=== PATIENT | female | born 1950 | race Caucasian/White ===

== ENCOUNTER 2019-07-12 09:40 | Outpatient (CLI) | payer MEDICARE, OTHER ==
[2019-07-12 09:54] LABS: BASOPHILS # (AUTO) 0.1 10^3/uL (0.0-0.1); BASOPHILS % (AUTO) 0.8 %; EOSINOPHILS # (AUTO) 0.1 10^3/uL (0.0-0.7); HGB - HEMOGLOBIN 13.6 g/dL (14.0-18.0); LYMPHOCYTES # (AUTO) 1.3 10^3/uL (1.5-3.5); LYMPHOCYTES % (AUTO) 20.4 %; MEAN CORPUSCULAR HEMOGLOBIN 31.3 pg (27.0-31.0); MEAN CORPUSCULAR HGB CONC 33.5 g/dL (32.0-36.0); MEAN CORPUSCULAR VOLUME 93.5 fL (80.0-94.0); MEAN PLATELET VOLUME 9.9 fL (7.4-11.4); MONOCYTES # (AUTO) 0.7 10^3/uL (0.0-1.0); MONOCYTES % (AUTO) 10.1 %; NEUTROPHILS # (AUTO) 4.2 10^3/uL (1.5-6.6); NEUTROPHILS % (AUTO) 66.2 %; PLT - PLATELET COUNT 288 10^3/uL (130-450); RED BLOOD COUNT 4.34 10^6/uL (4.70-6.10); RED CELL DISTRIBUTION WIDTH 12.3 % (12.0-15.0); WHITE BLOOD COUNT 6.4 x10^3/uL (4.8-10.8)
[2019-07-12 10:14] LABS: ALBUMIN 4.3 g/dL (3.2-5.5); ALBUMIN/GLOBULIN RATIO 1.2 (1.0-2.2); BILIRUBIN,TOTAL 0.7 mg/dL (0.2-1.0); CALCIUM 10.1 mg/dL (8.5-10.3); CREATININE 0.8 mg/dL (0.6-1.2); TOTAL PROTEIN 7.8 g/dL (6.7-8.2)
== END 2019-07-12 09:41 | disposition home or self-care (01) ==
LOC: EDSEX → LAB 09:40
PROVIDERS: ATTEND Physician Assistant
DX: R10.9 Unspecified abdominal pain (principal)
CPT/HCPCS: 36415; 80053; 85025

== ENCOUNTER 2019-07-12 09:55 | Outpatient (CLI) | payer MEDICARE, OTHER | END 2019-07-12 09:56 | disposition home or self-care (01) | LOC: DI 09:55 → EDSEX 09:55 → DI 09:56 | PROVIDERS: ATTEND Physician Assistant | DX: Z53.9 Procedure and treatment not carried out, unspecified reason (principal) ==

== ENCOUNTER 2019-07-13 08:30 | Outpatient (CLI) | payer MEDICARE, OTHER ==
[2019-07-13] MEDS ORDERED: IOVERSOL 320 100 ML VIAL IVP ONE (11:38)
[2019-07-13] MEDS ORDERED: IOVERSOL 320 50 ML VIAL PO ONE (11:38)
--- NOTE | 2019-07-15 06:20 | CT Report ---
Reason: ABD PAIN, CRAMPING, BOWEL CHANGES Procedure Date: 07/13/2019 Accession Number: [id number] / [id number] Procedure: CT - Abdomen/Pelvis W CPT Code: FULL RESULT: EXAM: CT ABDOMEN AND PELVIS EXAM DATE: 07/13/2019 10:55 AM. CLINICAL HISTORY: ABD PAIN, CRAMPING, BOWEL CHANGES. COMPARISONS: None. TECHNIQUE: Routine helical CT imaging was performed through the abdomen and pelvis. IV contrast: OPTI 320 90ML. Enteric contrast: Yes. Reconstructions: Coronal and sagittal. In accordance with CT protocol optimization, one or more of the following dose reduction techniques were utilized for this exam: automated exposure control, adjustment of mA and/or KV based on patient size, or use of iterative reconstructive technique. FINDINGS: Lung Bases: Mild scarring and/or atelectasis at lung bases. Small granuloma in the lingula. Liver: Mild fatty infiltration of the liver. Liver otherwise unremarkable. Gallbladder/Bile Ducts: Unremarkable. Spleen: Normal. Pancreas: Fatty replacement/atrophy of the pancreas. No peripancreatic fluid or stranding. No evidence of mass. Adrenal Glands: Normal. Kidneys: Normal for age. No masses, calculi or hydronephrosis. Peritoneal Cavity/Bowel: No evidence of bowel obstruction. No significant bowel wall thickening. Colonic diverticula without evidence of acute diverticulitis. Normal appendix. Pelvic Organs: Bladder is underdistended which limits evaluation. Uterus and adnexa appear grossly unremarkable. Vasculature: Atherosclerotic vascular disease. No abdominal aortic aneurysm. Bones: Osseous degenerative changes and mild scoliosis of lumbar spine. No acute osseous abnormality. Other: Tiny fat-containing umbilical hernia. IMPRESSION: 1. No acute inflammatory or obstructive process in the abdomen or pelvis. Specifically, no CT evidence of bowel process to account for symptoms. 2. Colonic diverticula without evidence of acute diverticulitis. 3. Mild fatty infiltration of the liver. RADIA
== END 2019-07-13 08:31 | disposition home or self-care (01) ==
LOC: DI 08:30
PROVIDERS: ATTEND Physician Assistant
DX: K57.30 Diverticulosis of large intestine without perforation or abscess without bleeding (principal); K76.0 Fatty (change of) liver, not elsewhere classified; R10.9 Unspecified abdominal pain
CPT/HCPCS: 74177; Q9967

== ENCOUNTER 2019-11-06 09:42 | Outpatient (CLI) | payer MEDICARE, OTHER ==
--- NOTE | 2019-11-06 14:48 | XRAY Report ---
Reason: LOW BACK PAIN Procedure Date: 11/06/2019 Accession Number: [id number] / [id number] Procedure: XRS - SI Joints CPT Code: Final Report FULL RESULT: EXAM: SACROILIAC JOINT RADIOGRAPHY. EXAM DATE: 11/06/2019 10:07 AM. CLINICAL HISTORY: Low back pain. COMPARISON: None. TECHNIQUE: 3 views. FINDINGS: Bones: Normal. No fracture or bone lesion. Joints: The sacroiliac joints are normal. Soft Tissues: Normal. IMPRESSION: Normal sacroiliac joint radiography. RADIA
== END 2019-11-06 09:43 | disposition home or self-care (01) ==
LOC: DI.S 09:42
PROVIDERS: ATTEND Registered Nurse
DX: M54.5 Low back pain (principal)
CPT/HCPCS: 72202

== ENCOUNTER 2019-12-20 11:47 | Outpatient (CLI) | payer MEDICARE, OTHER ==
--- NOTE | 2019-12-20 19:05 | XRAY Report ---
Reason: LOW BACK PAIN, PAIN IN RIGHT HIP Procedure Date: 12/20/2019 Accession Number: [id number] / [id number] Procedure: XRS - Lumbar Spine 2 View CPT Code: Final Report FULL RESULT: EXAM: LUMBOSACRAL SPINE RADIOGRAPHY EXAM DATE: 12/20/2019 12:09 PM. CLINICAL HISTORY: LOW BACK PAIN, PAIN IN RIGHT HIP. COMPARISONS: HIP BILAT 12/20/2019 12:17 PM ABDOMEN/PELVIS W/ 07/13/2019 10:46 AM. TECHNIQUE: 2 views. FINDINGS: Alignment: There is mild right convex scoliosis. No evidence of spondylolisthesis. Bones: Five [id number] lumbar vertebral bodies are present. No fractures or bone lesions. Disks: There is mild multilevel disk space narrowing and marginal osteophyte formation. Facets: There is lower lumbar facet arthrosis. Sacroiliac Joints: Unremarkable. Soft Tissues: Normal. The visualized bowel gas pattern is normal. IMPRESSION: 1. No evidence of fracture or dislocation. 2. There is right convex scoliosis. 3. There is mild to moderate multilevel degenerative disease. RADIA
--- NOTE | 2019-12-20 19:05 | XRAY Report ---
Reason: LOW BACK PAIN, PAIN IN RIGHT HIP Procedure Date: 12/20/2019 Accession Number: [id number] / [id number] Procedure: XRS - Hips 2V BILAT CPT Code: Final Report FULL RESULT: EXAM: BILATERAL HIP RADIOGRAPHY EXAM DATE: 12/20/2019 12:09 PM. CLINICAL HISTORY: LOW BACK PAIN, PAIN IN RIGHT HIP. COMPARISON: SACROILIAC JOINTS 11/06/2019 10:06 AM. TECHNIQUE: 2 views each. FINDINGS: Bones: No fractures or bone lesion. Right Hip: No dislocation. The hip joint space is preserved. Left Hip: No dislocation. The hip joint space is preserved. Soft Tissues: Normal. No soft tissue swelling. IMPRESSION: Negative bilateral hip radiography. RADIA
== END 2019-12-20 11:48 | disposition home or self-care (01) ==
LOC: DI.S 11:47
PROVIDERS: ATTEND Physician Assistant
DX: M47.816 Spondylosis without myelopathy or radiculopathy, lumbar region (principal); M51.36 Other intervertebral disc degeneration, lumbar region; M41.9 Scoliosis, unspecified; M25.551 Pain in right hip
CPT/HCPCS: 72100; 73521

== ENCOUNTER 2020-10-01 12:57 | Outpatient (CLI) | payer MEDICARE, OTHER ==
[2020-10-01 20:09] LABS: HEMOGLOBIN A1c% 5.8 % (4.27-6.07)
[2020-10-01 20:22] LABS: ALBUMIN 4.6 g/dL (3.2-5.5); ALBUMIN/GLOBULIN RATIO 1.4 (1.0-2.2); ALKALINE PHOSPHATASE 51 IU/L (42-121); ALT ALANINE AMINOTRANSFERASE 23 IU/L (10-60); AST ASPARTATE AMINOTRANSFERASE 18 IU/L (10-42); BILIRUBIN,TOTAL 0.4 mg/dL (0.2-1.0); BUN - BLOOD UREA NITROGEN 28 mg/dL (6-20); CALCIUM 10.5 mg/dL (8.5-10.3); CARBON DIOXIDE - CO2 24 mmol/L (21-32); CHLORIDE 101 mmol/L (101-111); CHOL/HDL RATIO 3.6 (<4.4); CHOLESTEROL 243 mg/dL; CREATININE 0.7 mg/dL (0.4-1.0); GLUCOSE 114 mg/dL (70-100); HDL CHOLESTEROL 67 mg/dL; LDL CHOLESTEROL,CALCULATED 152 mg/dL; LDL/HDL RATIO 2.3 (<4.4); SODIUM 136 mmol/L (135-145); VLDL CHOLESTEROL 24 mg/dL
[2020-10-01 20:28] LABS: THYROID STIMULATING HORMONE 0.13 uIU/mL (0.34-5.60)
[2020-10-01 20:32] LABS: FREE T4 (FREE THYROXINE) 0.68 ng/dL (0.58-1.64)
[2020-10-01 20:36] LABS: TOTAL T3 1.44 ng/mL (0.87-1.78)
== END 2020-10-01 12:58 | disposition home or self-care (01) ==
LOC: LAB.S 12:57
PROVIDERS: ATTEND Nurse Practitioner Family
DX: F32.9 Major depressive disorder, single episode, unspecified (principal); G47.00 Insomnia, unspecified; E78.5 Hyperlipidemia, unspecified; I10 Essential (primary) hypertension; N39.0 Urinary tract infection, site not specified; R73.9 Hyperglycemia, unspecified
CPT/HCPCS: 36415; 80053; 80061; 81599; 83036; 83721; 84439; 84443; 84445; 84480; 86376

== ENCOUNTER 2020-10-07 17:00 | Outpatient (CLI) | payer MEDICARE, OTHER | END 2020-10-07 17:01 | disposition EMS.NT | LOC: EMS 17:00 | PROVIDERS: ATTEND Surgery | DX: Z04.1 Encounter for examination and observation following transport accident (principal) ==

== ENCOUNTER 2021-09-19 10:25 | Outpatient (CLI) | payer MEDICARE, OTHER ==
--- NOTE | 2021-09-19 12:09 | CT Report ---
PROCEDURE: CT brain without contrast INDICATIONS: INJURY OF HEAD, THORACIC SPINE PAIN, RIB PAIN TECHNIQUE: Noncontrast 4.5 mm thick angled axial sections acquired from the foramen magnum to the vertex. For r adiation dose reduction, the following was used: automated exposure control, adjustment of mA and/or kV according to patient size. COMPARISON: None. FINDINGS: Image quality: Excellent. CSF spaces: Basal cisterns are patent. No extra-axial fluid collections. Ventricles are normal in size and shape. Brain: No midline shift. No intracranial masses or hemorrhage. Merino-white matter interface is norm al. Moderate cerebral and cerebellar atrophy and white matter multifocal chronic ischemic changes not ed. Skull and face: Calvarium and visualized facial bones are intact, without suspicious lesions. There is a right occipital exophytic osteoma or osteochondroma measuring 1.9 x 1.7 cm. 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 IMPRESSION: 1. Moderate atrophy and chronic ischemic change without intracranial hemorrhage or mass effect. 2. Incidental benign right occipital exophytic osteoma or osteochondroma Reviewed by: Param Greco MD on 09/19/2021 11:[address] [facility] Approved by: Param Greco MD on 09/19/2021 11:[address] [facility] Station ID: [id number]
--- NOTE | 2021-09-19 14:33 | XRAY Report ---
PROCEDURE: Thoracic spine x-ray INDICATIONS: PAIN THORACIC SPINE TECHNIQUE: 3 views of the thoracic spine were acquired. COMPARISON: None. FINDINGS: Bones: No fractures or dislocations. No suspicious bony lesions. 12 pairs of ribs are noted, and a ppear intact where visualized. Convex left thoracolumbar scoliosis noted. Degenerative disc space na rrowing and facet sclerosis noted at the cervicothoracic junction. Soft tissues: No paravertebral stripe thickening. IMPRESSION: Degenerative changes and thoracolumbar levoscoliosis without acute fracture or foreign body Reviewed by: Param Greco MD on 09/19/2021 1:32 PM [place] Approved by: Param Greco MD on 09/19/2021 1:32 PM [facility] Station ID: [id number]
--- NOTE | 2021-09-19 14:40 | XRAY Report ---
PROCEDURE: Ribs w/PA Chest RT, x-ray INDICATIONS: RIGHT RIB PAIN TECHNIQUE: 2 views of the right ribs were acquired, along with a single view chest. COMPARISON: None FINDINGS: Surgical changes and devices: None. Bones and chest wall: No fractures or dislocations. No suspicious bony lesions. Overlying soft tis sues appear unremarkable. Lungs and pleura: No pleural effusions or pneumothorax. Lungs appear clear. Mediastinum: Mediastinal contours appear normal. Heart size is normal. Atherosclerotic vascular ca lcification noted in the aortic arch. IMPRESSION: No evidence of fracture or pneumothorax. No acute cardiopulmonary findings Aortic atherosclerosis Reviewed by: Param Greco MD on 09/19/2021 1:39 PM [place] Approved by: Param Greco MD on 09/19/2021 1:39 PM [facility] Station ID: [id number]
== END 2021-09-19 10:26 | disposition home or self-care (01) ==
LOC: DI 10:25
PROVIDERS: ATTEND Nurse Practitioner Family
DX: R07.81 Pleurodynia (principal); M47.814 Spondylosis without myelopathy or radiculopathy, thoracic region; M41.9 Scoliosis, unspecified; I70.0 Atherosclerosis of aorta; G31.9 Degenerative disease of nervous system, unspecified; I67.82 Cerebral ischemia; S09.90XA Unspecified injury of head, initial encounter

== ENCOUNTER 2022-03-15 10:12 | Outpatient (CLI) | payer MEDICARE, OTHER ==
[2022-03-15 19:49] LABS: ESTIMATED AVERAGE GLUCOSE 126 mg/dL (70-100)
== END 2022-03-15 10:13 | disposition home or self-care (01) ==
LOC: LAB.S 10:12
PROVIDERS: ATTEND Registered Nurse
DX: R73.03 Prediabetes (principal)
CPT/HCPCS: 36415; 82947; 83036

== ENCOUNTER 2022-09-15 12:30 | Outpatient (CLI) | payer MEDICARE, OTHER ==
--- NOTE | 2022-09-15 14:07 | XRAY Report ---
PROCEDURE: Chest 2 View X-Ray INDICATIONS: COUGH TECHNIQUE: 2 view chest COMPARISON: None. FINDINGS: Surgical changes and devices: None. Lungs and pleura: No pleural effusions or pneumothorax. Mild interstitial prominence. There is calc ified nodular density in the left costophrenic angle. Mediastinum: Mediastinal contours are normal. Heart size is normal. Moderate atherosclerotic calcif ications. Biapical scarring. Bones and chest wall: No suspicious bony abnormalities. Soft tissues appear unremarkable. IMPRESSION: 1. Mild interstitial prominence. And 2. A calcified granuloma in the left costophrenic angle. Reviewed by: Juni Jaramillo MD on 09/15/2022 2:06 PM PST Approved by: Juni Jaramillo MD on 09/15/2022 2:06 PM PST Station ID: [id number]
== END 2022-09-15 12:31 | disposition home or self-care (01) ==
LOC: DI.S 12:30
PROVIDERS: ATTEND Registered Nurse
DX: R05.9 Cough, unspecified (principal); J98.4 Other disorders of lung

== ENCOUNTER 2024-02-16 11:14 | Outpatient (CLI) | payer MEDICARE, OTHER ==
[2024-02-16] MEDS: ALBUTEROL 1 PUFF INH STA (14:19)
== END 2024-02-16 11:15 | disposition home or self-care (01) ==
LOC: RT 11:14
PROVIDERS: ATTEND Registered Nurse
DX: J45.20 Mild intermittent asthma, uncomplicated (principal)
CPT/HCPCS: 94060; 94729

== ENCOUNTER 2024-04-19 14:14 | Outpatient (CLI) | payer MEDICARE, OTHER ==
[2024-04-19 21:12] LABS: ESTIMATED AVERAGE GLUCOSE 114 mg/dL (70-100); HEMOGLOBIN A1c% 5.6 % (4.27-6.07)
== END 2024-04-19 14:15 | disposition home or self-care (01) ==
LOC: LAB.S 14:14
PROVIDERS: ATTEND Registered Nurse
DX: R73.03 Prediabetes (principal)
CPT/HCPCS: 36415; 82947; 83036

== ENCOUNTER 2025-09-16 17:26 | Inpatient (IN) ==
--- NOTE | 2025-09-16 17:45 | ED Physician Documentation ---
History of Present Illness Stated complaint Stated Complaint: GEN WEAKNESS Chief complaint Chief Complaint: Neuro Additonal information Additional information: 75-year-old female with a recent diagnosis of ovarian cancer and recent paracentesis (results pending) presents to the emergency department via EMS for evaluation of severe generalized weakness. The patient lives alone and reports progressive weakness over the past several days. Today, she was unable to get up from the couch and eventually slid onto all fours in an attempt to move to another room but was unable to do so, prompting her to call for emergency assistance. She denies any fall or head strike. She reports ongoing drainage from the paracentesis site and increased shortness of breath but denies nausea, vomiting, fever, or chills. Meds/Allgy Home Medications Ambulatory Orders Medication Instructions Recorded Confirmed albuterol 90 mcg/actuation aerosol mcg inhalation 09/07 inhaler albuterol sulfate 90 mcg/actuation inhalation 09/16/25 aerosol inhaler alprazolam 1 mg tablet mg 09/16/25 atorvastatin 80 mg PO DAILY 09/16/2509/07 diclofenac potassium 50 mg tablet 50 mg PO DAILY 09/1609/16/25 dicyclomine 20 mg tablet 20 mg PO BID 09/16/25 fluoxetine 30 mg PO DAILY 09/16/2509/07 lisinopril 40 mg PO DAILY 09/16/2509/07 trazodone 100 mg tablet 100 mg PO DAILY 09/16/2508/31 triamcinolone acetonide 0.1 % 1 applic topical DAILY 1 11/16/24 09/16/25 topical cream trimethoprim 100 mg tablet 100 mg PO DAILY 09/16/25 verapamil 360 mg 24 hr 360 mg PO DAILY 09/16/2508/31 capsule,extended release Allergies Allergies Allergy/AdvReac Type Severity Reaction Status Date / Time codeine Allergy Unknown Unknown Verified 09/16/25 17:39 metformin Allergy Unknown Unknown Verified 09/16/25 17:39 Tetracyclines Allergy Unknown Unknown Verified 09/16/25 17:39 [facility] Active Problems All Active Problems (Updated 09/16/25 @ 21:49 by Neil Durham DNP) Pulmonary emboli (Acute) Medical History Medical History (Updated 09/16/25 @ 21:49 by Neil Durham DNP) History of depression History of hyperlipidemia History of ovarian cancer History of hypertension History of anxiety History of ankle fracture Surgical History Surgical History (Updated 09/16/25 @ 17:52 by Saad Lerner, RN, BSN) History of tonsillectomy Family History Family History (Updated 09/06/25 @ 14:20 by Ciera Paris MA) Mother Diabetes Heart disease Father Low blood pressure CVA (cerebral vascular accident) Brother Diabetes Dementia Heart attack Sister Cancer Diabetes Social History Social History Do you feel safe in your home environment?: Yes History of physical, verbal, emotional, or financial abuse?: No Exam Exam Vital Signs: Vital Signs x48h Temp Pulse Resp BP Pulse Ox 09/16/25 21:42 37.1 C 09/16/25 21:40 97 20 114/75 97 09/16/25 21:24 96 20 104/68 91 L 09/16/25 19:12 99 16 120/62 91 L 09/16/25 17:31 36.4 C L 96 16 125/59 L 95 Constitutional normal general appearance, no apparent distress, abnormal body habitus (obese), no limitations and alert HENMT normocephalic and head/scalp atraumatic Eyes PERRL and EOMs intact bilaterally Neck/C-Spine visual inspection normal Lymph no lymphadenopathy noted Chest inspection of chest normal Respiratory breath sounds equal bilaterally and no retractions diminished Cardiovascular heart rate abnormal (tachycardic) Gastrointestinal abdominal ascites Genitourinary no CVA tenderness Extremities normal to inspection and normal to palpation Neurology garment presser II-XII intact Psychiatry mental status grossly normal and oriented x3 Skin skin color abnormal (pale) Results Vitals Vitals: Vital Signs - 24 hr 09/16/25 17:31 09/16/25 19:12 09/16/25 21:24 Temperature 36.4 C L Temperature Source Temporal Artery Scan Pulse Rate 96 99 96 Respiratory Rate 16 16 20 Blood Pressure 125/59 L 120/62 104/68 O2 Saturation 95 91 L 91 L O2 Source Room air Room air Room air Pain Intensity 2 09/16/25 21:40 09/16/25 21:42 Temperature 37.1 C Temperature Source Oral Pulse Rate 97 Respiratory Rate 20 Blood Pressure 114/75 O2 Saturation 97 O2 Source Room air Pain Intensity Oxygen O2 Source Room air EKG (time done) 2225: EKG releavant findings:: EKG personally interpreted by author of this note. Relevant findings are: Rate: Rate (enter#) (96) Rhythm: NSR Whitney: Normal Intervals: Normal MD Ischemia: Normal ST segments Computer interpretation: Agree with computer Labs Labs: Laboratory Tests 09/16/25 09/16/25 09/16/25 18:10 20:00 22:04 WBC 14.3 H 13.2 H RBC 4.13 L 3.86 L Hgb 11.1 L 10.4 L Hct 36.6 L 33.9 L MCV 88.6 87.8 MCH 26.9 L 26.9 L MCHC 30.3 L 30.7 L RDW 14.2 14.3 Plt Count 492 H 462 H MPV 10.0 10.1 Neut # (Auto) 12.2 H Lymph # (Auto) 0.6 L [place] # (Auto) 1.1 H Eos # (Auto) 0.2 Baso # (Auto) 0.1 Absolute Nucleated RBC 0.00 Nucleated RBC % 0.0 APTT 24.7 L Sodium 137 Potassium 4.5 Chloride 100 L Carbon Dioxide 27 Anion Gap 10.0 BUN 34 H Creatinine 1.3 Estimated GFR (MDRD) 40 L Glucose 99 Calcium 9.0 Magnesium 2.1 Total Bilirubin 0.4 AST 16 ALT 8 L Alkaline Phosphatase 76 Total Protein 6.4 Albumin 3.2 Globulin 3.2 Albumin/Globulin Ratio 1.0 Urine Color YELLOW Urine Clarity CLEAR Urine pH 6.0 Ur Specific [place] 1.015 Urine Protein TRACE Urine Glucose (UA) NEGATIVE Urine Ketones NEGATIVE Urine Occult Blood NEGATIVE Urine Nitrite NEGATIVE Urine Bilirubin NEGATIVE Urine Urobilinogen 0.2 (NORMAL) Ur Leukocyte Esterase NEGATIVE Ur Microscopic Review NOT INDICATED Urine Culture Comments NOT INDICATED Rads (name of study) CT angio chest: Relevant Findings:: Final report received and EMP independent interpretation of test Interpretation: IMPRESSION: Multiple acute pulmonary emboli involving the bilateral hemithoraces extending from the level of the proximal segmental pulmonary arteries distally. No evidence for acute right heart strain. Trace right and small left pleural effusions with associated compressive atelectasis. Moderate ascites noted in the upper abdomen. Large 4.7 cm hypodense left thyroid lobe nodule. Recommend further evaluation with nonemergent thyroid ultrasound. . jAcute findings were discussed with ordering clinician at 2119 hrs. PD Medical Decision Making ED course ED course: 75-year-old female with a recent diagnosis of ovarian cancer and recent paracentesis (results pending) presenting with severe generalized weakness and shortness of breath. On arrival, she appeared pale but alert and oriented. Vital signs were notable for mild tachycardia and oxygen saturation in the high 80's, low 90s on room air. Physical examination revealed abdominal distension with ascites and decreased breath sounds bilaterally. Given her symptoms and history of malignancy, there was concern for pulmonary embolism. A CT angiogram of the chest was obtained, which demonstrated multiple acute pulmonary emboli involving the bilateral hemithoraces extending from the proximal segmental pulmonary arteries distally, without evidence of acute right heart strain. Additional findings included trace right and small left pleural effusions with compressive atelectasis, moderate upper abdominal ascites, and a large 4.7 cm hypodense left thyroid lobe nodule (nonemergent outpatient ultrasound recommended). Laboratory results were significant for leukocytosis (WBC 13.2), mild anemia (Hgb 10.4), elevated BUN (34), and reduced GFR (40). Given her PESI score of 147, she is classified as very high risk for adverse outcomes. The decision was made to initiate a heparin infusion for anticoagulation. The patient remained hemodynamically stable during her ED course, with no evidence of decompensation. The case was discussed with the telehospitalist who will give reports to telehospitalist for admission for continued management of acute pulmonary embolism in the setting of active malignancy and deconditioning. The patient was informed of findings, treatment plan, and need for inpatient care. All questions were answered, and the patient agreed with the plan. Discharge Plan Discharge Patient Disposition: 66 [facility] DC/Xfer Condition: Fair Clinical Impression: Pulmonary emboli Prescriptions: No Action albuterol 90 mcg/actuation aerosol inhalation atorvastatin 80 mg PO DAILY fluoxetine 30 mg PO DAILY lisinopril 40 mg PO DAILY verapamil 360 mg capsule,ext rel. pellets 24 hr 360 mg PO DAILY trimethoprim 100 mg tablet 100 mg PO DAILY trazodone 100 mg tablet 100 mg PO DAILY Patient Comments: take 1 tablet by mouth at bedtime if needed for sleep dicyclomine 20 mg tablet 20 mg PO BID alprazolam 1 mg tablet Patient Comments: take 1/2 to 1 tablet by mouth once daily if needed for anxiety diclofenac potassium 50 mg tablet 50 mg PO DAILY albuterol sulfate 90 mcg/actuation HFA aerosol inhaler INHALATION Patient Comments: INHALE 2 PUFFS BY MOUTH AND INTO THE LUNGS EVERY 4 HOURS IF NEEDED triamcinolone acetonide 0.1 % cream 1 applic topical DAILY Print Language: Djiboutian
[2025-09-16 18:22] LABS: HCT - HEMATOCRIT 36.6 % (37.0-47.0); HGB - HEMOGLOBIN 11.1 g/dL (12.0-16.0); MEAN PLATELET VOLUME 10.0 fL (7.9-10.8); NRBC ABSOLUTE COUNT (AUTO) 0.00 x10^3/uL; NUCLEATED RED BLOOD CELLS AUTO 0.0 /100WBC; PLT - PLATELET COUNT 492 10^3/uL (130-450); RED CELL DISTRIBUTION WIDTH 14.2 % (12.0-15.0)
--- OUTSIDE RECORDS SUMMARY | 2025-09-16 18:34 | EXTERNAL MEDICAL SUMMARY RPT | Continuity of Care Document ---
Author Organization [place] Address [address] [place] [id number] Phone Problems date description facility 2025-09-02 12:01 Left lower quadrant pain [facility] 2025-09-05 12:59 [facility] 2025-09-16 09:39 [facility] Social History date description facility
[2025-09-16 18:39] LABS: ALT ALANINE AMINOTRANSFERASE 8.0 IU/L (10-60); AST ASPARTATE AMINOTRANSFERASE 16.0 IU/L (10-42); BUN - BLOOD UREA NITROGEN 34.0 mg/dL (6-20); CARBON DIOXIDE - CO2 27.0 mmol/L (21-32); CREATININE 1.3 mg/dL (0.6-1.3); GFR - MDRD 40.0 (>89)
[2025-09-16 20:08] LABS: GLUCOSE, URINE (UA) NEGATIVE (NEGATIVE); KETONES,URINE (UA) NEGATIVE (NEGATIVE); OCCULT BLOOD,URINE NEGATIVE (NEGATIVE)
--- NOTE | 2025-09-16 21:23 | CT Report ---
PROCEDURE: CT Angio Chest INDICATIONS: SOA, weakness r/o DVT CONTRAST: omni 300, 100ml TECHNIQUE: After the administration of intravenous contrast images of the chest were acquired. 3-dimensional coronal oblique maximum intensity projection (MIP) reformats, axial MIP, and coronal and sagittal MPR reformats were then performed through the chest. For radiation dose reduction, the following was used: automated exposure control, adjustment of mA and/or kV according to patient size. COMPARISON: 09/15/2022 FINDINGS: Image quality: Diagnostic. Large vessels: Multiple acute pulmonary emboli noted in the bilateral hemithoraces involving all lobes. Pulmonary emboli are noted from the level of the proximal segmental pulmonary arteries distally. No evidence for acute right- sided heart strain. Lungs and pleura: No consolidation. No pneumothorax. Trace right and small left bilateral pleural effusions with associated compressive atelectasis. No dense consolidation seen. No suspicious pulmonary nodules which require follow up. Visualized airways appear patent. Mediastinum: Heart size is normal. No pericardial effusion. No large vessel abnormality. No mediastinal adenopathy by size criteria. Chest wall and lower neck: There is a large 4.7 x 4.3 cm hypodense nodule in the left thyroid lobe. No axillary or supraclavicular adenopathy by size. Bones: No aggressive osseous abnormality. No acute compression fracture. Upper Abdomen: Moderate ascites noted in the upper abdomen bilaterally. Small hiatal hernia. IMPRESSION: Multiple acute pulmonary emboli involving the bilateral hemithoraces extending from the level of the proximal segmental pulmonary arteries distally. No evidence for acute right heart strain. Trace right and small left pleural effusions with associated compressive atelectasis. Moderate ascites noted in the upper abdomen. Large 4.7 cm hypodense left thyroid lobe nodule. Recommend further evaluation with nonemergent thyroid ultrasound. . jAcute findings were discussed with ordering clinician at 2119 hrs. Reviewed by: Avi Young MD on 09/16/2025 9:19 PM PST Approved by: Avi Young MD on 09/16/2025 9:19 PM PST Station ID: [id number]
[2025-09-16] MEDS: HEPARIN 25000UNITS/500ML (D5W) 25,000 UNIT/500 ML BAG IV SCH ×2 (22:07→22:56)
[2025-09-16 22:10] LABS: HCT - HEMATOCRIT 33.9 % (37.0-47.0); HGB - HEMOGLOBIN 10.4 g/dL (12.0-16.0); MEAN PLATELET VOLUME 10.1 fL (7.9-10.8); PLT - PLATELET COUNT 462.0 10^3/uL (130-450); RED CELL DISTRIBUTION WIDTH 14.3 % (12.0-15.0)
--- NOTE | 2025-09-17 00:56 | HISTORY & PHYSICAL EXAMINATION ---
Chief Complaint Chief Complaint Chief Complaint: weakness History of Present Illness Admitted From Admitted From:: ER History Obtained From History obtained from: Patient, chart History of Present Illness HPI Comment/Other: 75 yo F who presented with weakness. She states she developed extreme bloating and she was referred to hospital. CT 09/03 showed ovarian cancer and she was referred to hospital to get the fluid drained from her abdomen beginning of September. She had difficulty stopping the draining so she came in yesterday. Mostly drainage was clear with possible shadow of pink. She has some residual soreness head to belly and she is tired. Yesterday she developed weakness. She was sitting on the floor and when she tried to get up she could not, had weakness in all extremities so she called EMS. She denies history of blood clots but says her brother has had them. Review of Systems A comprehensive ROS was completed, pertinent positives and negatives are noted in the HPI and all other systems reviewed negative. PFSH Active Problems All Active Problems (Updated 09/16/25 @ 21:49 by Neil Durham DNP) Pulmonary emboli (Acute) Medical History Medical History (Updated 09/16/25 @ 21:49 by Neil Durham DNP) History of depression History of hyperlipidemia History of ovarian cancer History of hypertension History of anxiety History of ankle fracture Surgical History Surgical History (Updated 09/16/25 @ 23:58 by Valarie Bales RN) History of lumpectomy of both breasts History of lumpectomy of left breast History of mastectomy incorrect per patient Hx of prostatectomy History of tonsillectomy Family History Family History (Updated 09/06/25 @ 14:20 by Ciera Paris MA) Mother Diabetes Heart disease Father Low blood pressure CVA (cerebral vascular accident) Brother Diabetes Dementia Heart attack Sister Cancer Diabetes Social History Social History Smoking Status: Unknown if ever smoked Second hand tobacco smoke exposure: No Do you dip or chew tobacco?: No Do you vape?: No Patient requests smoking cessation consult: No Initiate information on smoking cessation: No Level: Independent Do you feel safe in your home environment?: Yes History of physical, verbal, emotional, or financial abuse?: No Substance Use: denies use POLST POLST CPR Status: Do Not Attempt Resuscitation (DNAR) / Allow Natural Meds/Allgy Home Medications Ambulatory Orders Medication Instructions Recorded Confirmed albuterol 90 mcg/actuation aerosol mcg inhalation 09/07 inhaler albuterol sulfate 90 mcg/actuation inhalation 09/16/25 aerosol inhaler alprazolam 1 mg tablet mg 09/16/25 atorvastatin 80 mg PO DAILY 09/16/2509/07 diclofenac potassium 50 mg tablet 50 mg PO DAILY 09/1609/16/25 dicyclomine 20 mg tablet 20 mg PO BID 09/16/25 fluoxetine 30 mg PO DAILY 09/16/2509/07 lisinopril 40 mg PO DAILY 09/16/2509/07 trazodone 100 mg tablet 100 mg PO DAILY 09/16/2508/31 triamcinolone acetonide 0.1 % 1 applic topical DAILY 1 11/16/24 09/16/25 topical cream trimethoprim 100 mg tablet 100 mg PO DAILY 09/16/25 verapamil 360 mg 24 hr 360 mg PO DAILY 09/16/2508/31 capsule,extended release Allergies Allergies Allergy/AdvReac Type Severity Reaction Status Date / Time metformin AdvReac Intermediate Diarrhea Verified 09/17/25 00:46 Tetracyclines AdvReac Intermediate upset Verified 09/17/25 00:46 stomach codeine AdvReac Mild jitters Verified 09/17/25 00:46 Exam Exam Vital Signs: Vital Signs x48h Temp Pulse Pulse Resp BP BP Pulse Ox 09/16/25 23:43 36.9 C 93 24 123/64 97 09/16/25 22:57 98 16 94 09/16/25 21:42 37.1 C 09/16/25 21:40 97 20 114/75 97 09/16/25 21:24 96 20 104/68 91 L 09/16/25 19:12 99 16 120/62 91 L 09/16/25 17:31 36.4 C L 96 16 125/59 L 95 O2 Flow Rate 09/16/25 23:43 2 09/16/25 22:57 2 09/16/25 21:42 09/16/25 21:40 2 09/16/25 21:24 09/16/25 19:12 09/16/25 17:31 General: awake, no acute distress Lungs: clear Heart: regular rate, rhythm Abdomen: Soft, nontender, distended, normal bowel sounds Musculoskeletal: Normal range of motion and strength, No tenderness Skin: Skin is warm, dry and pink Neurologic: alert, oriented Conclusion/Plan Problem List (1) Pulmonary emboli: Plan Assessment/Plan: 1. Bilateral PEs on CTA; no R heart strain, started on hep gtt in ER, will cont 2. Moderate ascites in setting of recently diagnosed ovarian cancer on CTA, s/p paracentesis earlier this month; peritoneal carcinomatosis on CT abd/pel 09/03 3. L thyroid nodule on CTA, check TFTs 4. HTN cont home regimen 5. Hyperlipidemia cont statin 6. Anxiety, depression cont Prozac, trazodone 7. Obesity - BMI 30.1 8. VTE prophylaxis lovenox 9. Dispo admit as obs to med/surg tele Code status discussed, she wishes to be DNR/DNI without chest compressions or intubation. Discussed plan of care with patient and her bedside RN. Case discussed at length with ER provider. Notes reviewed. This H&P was accomplished using Telemedicine services via [facility] and assistance for bedside assessment was carried out, interpreted and reported to me by the bedside nurse. Time spent 75min educating /interviewing patient, reviewing chart and coordinating care for patient. Lab Results Lab results reviewed: Yes 09/16/25 22:04 09/16/25 18:10 Diagnostic Imaging Results Diagnostic Imaging Results: positive Final report reviewed Telemedicine Consult Details Provider Location & Consult Time Telemedicine consultation conducted via videoconferencing?: Yes List names and roles of persons who participated in consult:: ER provider, Eva RN, patient Telemedicine provider location:: [place], [place]
[2025-09-17] MEDS ORDERED: ACETAMINOPHEN 325 MG TABLET PO PRN (00:59)
[2025-09-17] MEDS ORDERED: ATORVASTATIN 40 MG TABLET ONE (01:27)
--- NOTE | 2025-09-17 01:29 | HISTORY & PHYSICAL EXAMINATION ---
History of Present Illness History of Present Illness HPI Comment/Other: 75 yo F who presented with weakness. She states she developed extreme bloating and she was referred to hospital. CT 09/03 showed ovarian cancer and she was referred to hospital to get the fluid drained from her abdomen beginning of September. She had difficulty stopping the draining so she came in yesterday. Mostly drainage was clear with possible shadow of pink. She has some residual soreness head to belly and she is tired. Yesterday she developed weakness. She was sitting on the floor and when she tried to get up she could not, had weakness in all extremities so she called EMS. She denies history of blood clots but says her brother has had them. PFSH Active Problems All Active Problems (Updated 09/16/25 @ 21:49 by Neil Durham DNP) Pulmonary emboli (Acute) Medical History Medical History (Updated 09/16/25 @ 21:49 by Neil Durham DNP) History of depression History of hyperlipidemia History of ovarian cancer History of hypertension History of anxiety History of ankle fracture Surgical History Surgical History (Updated 09/16/25 @ 23:58 by Valarie Bales RN) History of lumpectomy of both breasts History of lumpectomy of left breast History of mastectomy incorrect per patient Hx of prostatectomy History of tonsillectomy Family History Family History (Updated 09/06/25 @ 14:20 by Ciera Paris MA) Mother Diabetes Heart disease Father Low blood pressure CVA (cerebral vascular accident) Brother Diabetes Dementia Heart attack Sister Cancer Diabetes Social History Social History (Updated 09/17/25 @ 01:23 by Ivy Le DO) Smoking Status: Unknown if ever smoked Second hand tobacco smoke exposure: No Do you dip or chew tobacco?: No Do you vape?: No Patient requests smoking cessation consult: No Initiate information on smoking cessation: No Level: Independent Do you feel safe in your home environment?: Yes History of physical, verbal, emotional, or financial abuse?: No Substance Use: denies use POLST POLST CPR Status: Do Not Attempt Resuscitation (DNAR) / Allow Natural Meds/Allgy Home Medications Ambulatory Orders Medication Instructions Recorded Confirmed albuterol 90 mcg/actuation aerosol mcg inhalation 09/07 inhaler albuterol sulfate 90 mcg/actuation inhalation 09/16/25 aerosol inhaler alprazolam 1 mg tablet mg 09/16/25 atorvastatin 80 mg PO DAILY 09/16/2509/07 diclofenac potassium 50 mg tablet 50 mg PO DAILY 09/1609/16/25 dicyclomine 20 mg tablet 20 mg PO BID 09/16/25 fluoxetine 30 mg PO DAILY 09/16/2509/07 lisinopril 40 mg PO DAILY 09/16/2509/07 trazodone 100 mg tablet 100 mg PO DAILY 09/16/2508/31 triamcinolone acetonide 0.1 % 1 applic topical DAILY 1 11/16/24 09/16/25 topical cream trimethoprim 100 mg tablet 100 mg PO DAILY 09/16/25 verapamil 360 mg 24 hr 360 mg PO DAILY 09/16/2508/31 capsule,extended release Allergies Allergies Allergy/AdvReac Type Severity Reaction Status Date / Time metformin AdvReac Intermediate Diarrhea Verified 09/17/25 00:46 Tetracyclines AdvReac Intermediate upset Verified 09/17/25 00:46 stomach codeine AdvReac Mild jitters Verified 09/17/25 00:46 Exam Exam Vital Signs: Vital Signs x48h Temp Pulse Pulse Resp BP BP Pulse Ox 09/16/25 23:45 09/16/25 23:43 36.9 C 93 24 123/64 97 09/16/25 22:57 98 16 94 09/16/25 21:42 37.1 C 09/16/25 21:40 97 20 114/75 97 09/16/25 21:24 96 20 104/68 91 L 09/16/25 19:12 99 16 120/62 91 L 09/16/25 17:31 36.4 C L 96 16 125/59 L 95 O2 Flow Rate 09/16/25 23:45 2 09/16/25 23:43 2 09/16/25 22:57 2 09/16/25 21:42 09/16/25 21:40 2 09/16/25 21:24 09/16/25 19:12 09/16/25 17:31 Conclusion/Plan Problem List (1) Pulmonary emboli: Plan Assessment/Plan: 1. Bilateral PEs on CTA; no R heart strain, started on hep gtt in ER, will cont 2. Moderate ascites in setting of recently diagnosed ovarian cancer on CTA, s/p paracentesis earlier this month; peritoneal carcinomatosis on CT abd/pel 09/03 3. L thyroid nodule on CTA, check TFTs 4. HTN cont home regimen 5. Hyperlipidemia cont statin 6. Anxiety, depression cont Prozac, trazodone 7. Obesity - BMI 30.1 8. VTE prophylaxis lovenox 9. Dispo admit as obs to med/surg tele Code status discussed, she wishes to be DNR/DNI without chest compressions or intubation. Discussed plan of care with patient and her bedside RN. Case discussed at length with ER provider. Notes reviewed. This H&P was accomplished using Telemedicine services via [facility] and assistance for bedside assessment was carried out, interpreted and reported to me by the bedside nurse. Time spent 75min educating /interviewing patient, reviewing chart and coordinating care for patient. Lab Results Lab results reviewed: Yes 09/16/25 22:04 09/16/25 18:10 Core Measures Anticipated LOS I expect patient to be DC'd or transferred within 96 hours.: Yes
[2025-09-17] MEDS: ATORVASTATIN 40 MG TABLET PO SCH (02:32)
[2025-09-17] MEDS: SODIUM CHLORIDE FLUSH 0.9% 10 ML SYRINGE IVP SCH (02:32)
[2025-09-17] MEDS: NYSTATIN POWDER 15 GM TOP SCH (03:07)
[2025-09-17 05:30] LABS: HCT - HEMATOCRIT 33.0 % (37.0-47.0); HGB - HEMOGLOBIN 10.5 g/dL (12.0-16.0); MEAN PLATELET VOLUME 10.3 fL (7.9-10.8); NRBC ABSOLUTE COUNT (AUTO) 0.00 x10^3/uL; NUCLEATED RED BLOOD CELLS AUTO 0.0 /100WBC; PLT - PLATELET COUNT 454 10^3/uL (130-450); RED CELL DISTRIBUTION WIDTH 14.3 % (12.0-15.0)
[2025-09-17 05:46] LABS: BUN - BLOOD UREA NITROGEN 32.0 mg/dL (6-20); CARBON DIOXIDE - CO2 29.0 mmol/L (21-32); CREATININE 1.3 mg/dL (0.6-1.3); GFR - MDRD 40.0 (>89)
--- NOTE | 2025-09-17 07:22 | PROVIDER PROGRESS NOTE ---
Subjective Prog Note Date Prog Note Date: 09/17/25 Prog Note Time: 07:20 Subjective Subjective: Patient was admitted overnight. She has been started on heparin drip for bilateral PEs without evidence of right heart strain. She is DNR/DNI. Unfortunate recent diagnosis of ovarian cancer with peritoneal carcinomatosis. Not yet started on treatment. For PE, she has been started on heparin drip here. Tolerating this reasonably well. Blood counts are stable. Vital signs are normalizing somewhat. Her O2 sat is 98% this morning on 2 L. Tachycardia improving. Likely to transition from heparin drip to a DOAC later this morning. She will need to work with PT. Hopefully wean oxygen over the coming day. Unlikely to discharge later today, but possibly as early as tomorrow. Patient denies any fevers or chills. Denies any nausea or vomiting. She has a chronic longstanding dry cough. She is having leakage from her previous paracentesis site. She overall states poor understanding of her cancer diagnosis. She has not had any follow-up with anyone. I called and discussed with her friend who is serving as a caregiver, he showed similar sentiments of poor understanding of her current illness. Current Medications Current Medications Current Medications: Current Medications Generic Name Dose Route Start Last Admin Trade Name Freq PRN Reason Stop Dose Admin Acetaminophen 650 mg 09/17/25 00:59 Acetaminophen 325 Mg Tablet PO Q4HR PRN Pain 1 to 4, or Fever Atorvastatin Calcium 80 mg 09/17/25 02:00 09/17/25 02:32 Atorvastatin 40 Mg Tablet PO Not Given HS AUGUSTUS Dicyclomine HCl 20 mg 09/17/25 09:00 Dicyclomine 10 Mg Capsule PO BID AUG[facility]US Fluoxetine HCl 30 mg 09/17/25 09:00 Fluoxetine 10 Mg Capsule PO DAILY [facility] Heparin Sodium (Porcine) 1,000 - 2,000 unit 09/16/25 22:29 Heparin 1,000 Unit/Ml Vial IVP Q6H PRN aPTT <50 Protocol Heparin Sodium/Dextrose 25,000 unit in 500 mls @ 21.48 mls/hr 09/16/25 23:00 09/17/25 05:59 Heparin Sodium/Dextrose IV 13 unit/kg/hr .[id number] AUGUSTUS 23.27 mls/hr Protocol Titration 12 UNIT/KG/HR Lisinopril 40 mg 09/17/25 09:00 Lisinopril 20 Mg Tablet PO DAILY [facility] Nystatin 1 applic 09/17/25 02:00 09/17/25 03:07 Nystatin Powder 15 Gm TOP Not Given BID AUG[facility]US Sodium Chloride 10 ml 09/17/25 00:59 Sodium Chloride Flush 0.9% 10 Ml Syringe IVP PRN PRN NEEDED PER PROVIDER ORDERS Sodium Chloride 10 ml 09/17/25 01:00 09/17/25 02:32 Sodium Chloride Flush 0.9% 10 Ml Syringe IVP Not Given 0100,0900,1700 [facility] Trazodone HCl 100 mg 09/17/25 02:00 09/17/25 01:29 Trazodone 50 Mg Tablet PO 100 mg HS AUG[facility]US Administration Verapamil HCl 360 mg 09/17/25 09:00 Verapamil Er 180 Mg Tablet PO DAILY [facility] Objective Vital Signs/Intake & Output Reviewed Vital Signs: Yes Vital Signs: Vital Signs x48h Temp Pulse Resp BP BP Pulse Ox O2 Flow Rate 09/17/25 05:23 36.5 C 94 18 108/70 98 2 09/16/25 23:45 2 09/16/25 23:43 36.9 C 93 24 123/64 97 2 Intake & Output: Intake & Output 09/14/25 09/15/25 09/16/25 09/17/25 23:59 23:59 23:59 23:59 Intake Total 143 / 143 Output Total 50 / 50 Balance 93 / 93 Weight (kg) 84.5 kg Objective Comments/Other: GEN: No acute distress HEENT: NC/AT, normal appearance of external ears and nose. Hearing baseline. Cardiac: Regular rate and rhythm, no murmurs. No significant JVP elevation at 30 degrees. Pulm: Lungs CTA bilaterally. No adventitial lung sounds. No wheeze. Chronic nagging dry cough. Abdomen: Soft, nontender. Distended. Ascites present. Persistent leakage from prior para site in her right mid abdomen. Extremities: Moves all 4 extremities equally. Normal tone. Neuro: Face symmetric, CN II through XII intact grossly. Gait exam deferred Psych: Mood euthymic with congruent affect. Lab Results 09/17/25 09:04 09/17/25 05:12 Other Labs: Lab Results x24hrs 11/11/25 11/10/25 11/10/25 Range/Units 05:12 22:04 20:00 WBC 10.8 13.2 H (4.8-10.8) x10^3/uL RBC 3.74 L 3.86 L (4.20-5.40) 10^6/uL Hgb 10.5 L 10.4 L (12.0-16.0) g/dL Hct 33.0 L 33.9 L (37.0-47.0) % MCV 88.2 87.8 (81.0-99.0) fL MCH 28.1 26.9 L (27.0-31.0) pg MCHC 31.8 L 30.7 L (32.0-36.0) g/dL RDW 14.3 14.3 (12.0-15.0) % Plt Count 454 H 462 H (130-450) 10^3/uL MPV 10.3 10.1 (7.9-10.8) fL Neut # (Auto) 8.6 H (1.5-6.6) 10^3/uL Lymph # (Auto) 0.9 L (1.5-3.5) 10^3/uL Isabella # (Auto) 1.0 (0.0-1.0) 10^3/uL Eos # (Auto) 0.2 (0.0-0.7) 10^3/uL Baso # (Auto) 0.1 (0.0-0.1) 10^3/uL Absolute Nucleated RBC 0.00 x10^3/uL Nucleated RBC % 0.0 /100WBC APTT 58.9 H 24.7 L (24.9-33.3) secs Sodium 138 (135-145) mmol/L Potassium 4.5 (3.5-4.5) mmol/L Chloride 101 (101-111) mmol/L Carbon Dioxide 29 (21-32) mmol/L Anion Gap 8.0 (6-13) BUN 32 H (6-20) mg/dL Creatinine 1.3 (0.6-1.3) mg/dL Estimated GFR (MDRD) 40 L (>89) Glucose 103 (74-104) mg/dL Calcium 8.7 (8.5-10.3) mg/dL Magnesium (1.7-2.3) mg/dL Total Bilirubin (0.2-1.0) mg/dL AST (10-42) IU/L ALT (10-60) IU/L Alkaline Phosphatase (42-121) IU/L Total Protein (6.4-8.9) g/dL Albumin (3.2-5.5) g/dL Globulin (2.1-4.2) g/dL Albumin/Globulin Ratio (1.0-2.2) TSH 3.22 (0.34-5.60) uIU/mL Urine Color YELLOW Urine Clarity CLEAR (CLEAR) Urine pH 6.0 (5.0-7.5) PH Ur Specific Mansfield 1.015 (1.002-1.030) Urine Protein TRACE (NEGATIVE) mg/dL Urine Glucose (UA) NEGATIVE (NEGATIVE) mg/dL Urine Ketones NEGATIVE (NEGATIVE) mg/dL Urine Occult Blood NEGATIVE (NEGATIVE) Urine Nitrite NEGATIVE (NEGATIVE) Urine Bilirubin NEGATIVE (NEGATIVE) Urine Urobilinogen 0.2 (NORMAL) (NORMAL) E.U./dL Ur Leukocyte Esterase NEGATIVE (NEGATIVE) Ur Microscopic Review NOT INDICATED Urine Culture Comments NOT INDICATED 09/16/25 Range/Units 18:10 WBC 14.3 H (4.8-10.8) x10^3/uL RBC 4.13 L (4.20-5.40) 10^6/uL Hgb 11.1 L (12.0-16.0) g/dL Hct 36.6 L (37.0-47.0) % MCV 88.6 (81.0-99.0) fL MCH 26.9 L (27.0-31.0) pg MCHC 30.3 L (32.0-36.0) g/dL RDW 14.2 (12.0-15.0) % Plt Count 492 H (130-450) 10^3/uL MPV 10.0 (7.9-10.8) fL Neut # (Auto) 12.2 H (1.5-6.6) 10^3/uL Lymph # (Auto) 0.6 L (1.5-3.5) 10^3/uL Isabella # (Auto) 1.1 H (0.0-1.0) 10^3/uL Eos # (Auto) 0.2 (0.0-0.7) 10^3/uL Baso # (Auto) 0.1 (0.0-0.1) 10^3/uL Absolute Nucleated RBC 0.00 x10^3/uL Nucleated RBC % 0.0 /100WBC APTT (24.9-33.3) secs Sodium 137 (135-145) mmol/L Potassium 4.5 (3.5-4.5) mmol/L Chloride 100 L (101-111) mmol/L Carbon Dioxide 27 (21-32) mmol/L Anion Gap 10.0 (6-13) BUN 34 H (6-20) mg/dL Creatinine 1.3 (0.6-1.3) mg/dL Estimated GFR (MDRD) 40 L (>89) Glucose 99 (74-104) mg/dL Calcium 9.0 (8.5-10.3) mg/dL Magnesium 2.1 (1.7-2.3) mg/dL Total Bilirubin 0.4 (0.2-1.0) mg/dL AST 16 (10-42) IU/L ALT 8 L (10-60) IU/L Alkaline Phosphatase 76 (42-121) IU/L Total Protein 6.4 (6.4-8.9) g/dL Albumin 3.2 (3.2-5.5) g/dL Globulin 3.2 (2.1-4.2) g/dL Albumin/Globulin Ratio 1.0 (1.0-2.2) TSH (0.34-5.60) uIU/mL Urine Color Urine Clarity (CLEAR) Urine pH (5.0-7.5) PH Ur Specific Mansfield (1.002-1.030) Urine Protein (NEGATIVE) mg/dL Urine Glucose (UA) (NEGATIVE) mg/dL Urine Ketones (NEGATIVE) mg/dL Urine Occult Blood (NEGATIVE) Urine Nitrite (NEGATIVE) Urine Bilirubin (NEGATIVE) Urine Urobilinogen (NORMAL) E.U./dL Ur Leukocyte Esterase (NEGATIVE) Ur Microscopic Review Urine Culture Comments Diagnostic Imaging Diagnostic Imaging Results: positive Final report reviewed and Read independently Diagnostic Imaging Comments: CTA from 09/16 reveals multiple acute PEs in the bilateral hemithoraces. Agree that there is no significant signs of right heart strain. Ascites is present in the visualized abdomen. Assessment/Plan Problem List (1) Pulmonary emboli: Impression: Patient with malignancy as below. Prolonged downtime and increased weakness in the setting of her malignancy. Found to have multiple acute PEs on her CTA. No right heart strain. Blood pressures remained stable. She was started on a heparin drip in the ED. Continued as of this morning. Overall her PE was largely unprovoked, would treat with indefinite anticoagulation. - Transition off heparin drip to loading dose Eliquis - 1 week loading dose Eliquis followed by indefinite twice daily 5 mg Eliquis (2) History of ovarian cancer: (3) Peritoneal carcinomatosis: Impression: Patient has a very recent diagnosis of ovarian cancer and peritoneal carcinomatosis. She was just informed of this possible diagnosis on . She was found to have moderately sized irregular adnexal mass measuring up to 5.[address] scan[address] was prompted by rapidly accumulating ascites and abdominal distention. Her liver is unremarkable. She had an ultrasound-guided paracentesis on 09/12 Pathology from that paracentesis just returned as of 09/17, revealing adenocarcinoma favoring Mullerian primary. This to be consistent with her imaging. This is ER positive. Normal expression of mismatch repair genes. Given attendant peritoneal carcinomatosis, the patient has a relatively poor outlook. Without treatment she may have a 6-month survival. With treatment it may be as much is a year. Unclear if her ER positivity may give her more targeted therapies. - Patient is wanting to follow-up with [facility] in [place]. - See ACP note from today - Goal probably to see if she can discharge and make it to [place] where she has more social supports. (4) Cough: Impression: Patient has a dry chronic cough which she says has been going on since long before her PE. She has not trialed anything prior to this hospitalization. She is reporting some pleuritic pain associated with her cough. - Antitussives, Tessalon as primary, Robitussin AC as secondary - Tylenol available for pain - As needed oral narcotics available for pain - Consider lidocaine patch for pleuritic chest pain, ordered as needed
[2025-09-17 09:14] LABS: HCT - HEMATOCRIT 32.9 % (37.0-47.0); HGB - HEMOGLOBIN 10.2 g/dL (12.0-16.0); MEAN PLATELET VOLUME 10.1 fL (7.9-10.8); PLT - PLATELET COUNT 451.0 10^3/uL (130-450); RED CELL DISTRIBUTION WIDTH 14.5 % (12.0-15.0)
[2025-09-17] MEDS: DICYCLOMINE 10 MG CAPSULE PO SCH (09:59)
[2025-09-17] MEDS: VERAPAMIL ER 180 MG TABLET PO SCH (10:00)
[2025-09-17] MEDS: FLUoxetine 10 MG CAPSULE PO SCH (10:00)
[2025-09-17] MEDS: APIXABAN 5 MG TABLET PO SCH (14:01)
[2025-09-17] MEDS: BENZONATATE 100 MG CAPSULE PO PRN (14:02)
--- NOTE | 2025-09-17 15:33 | PT Plan of Care ---
PT Inpatient Plan of Care DIAGNOSIS Diagnosis: pulmonary emboli Diagnosis: ascites Referring Provider: Hussein Mendiola Patient Status: Inpatient CHIEF COMPLAINT Chief Complaint: weakness, SOA Onset of Chief Complaint: BOTTLE FEEDER MEDICAL/SURGICAL HISTORY Medical History (Updated 09/16/25 @ 21:49 by Neil Durham DNP) History of depression History of hyperlipidemia History of ovarian cancer History of hypertension History of anxiety History of ankle fracture Surgical History (Updated 09/17/25 @ 15:32 by VIOLET DouglasT) History of lumpectomy of both breasts History of lumpectomy of left breast History of mastectomy incorrect per patient History of tonsillectomy ASSESSMENT Assessment: Pt is a pleasant 75yo F referred for PT eval d/t weakness and limited mobility. Admitted with BL pulm emoboli and ascites d/t ovarian cx. PMH includes lumpectomy; please see medical record for further details. Cleared for eval by hospitalist. Upon PT eval, pt met supine in bed, agreeable to participate. Pt on 1.5L O2, SpO2 93% at rest. Transfers to EOB with CGA, STS and SPT with FWW and minAx1. SpO2 90% with activity but pt denies significant increase in SOA during mobility. Notably fatigued from minimal activity. Given impairments in functional mobility and endurance, pt may benefit from continued skilled PT in acute setting to progress functional indep. When medically clear, PT rec dc to SNF vs home pending progress. If pt continues to require current level of assist, she will require SNF placement as she is indep at baseline and lives in multistory home. GOALS Improve supine to sit to:: Modified Independent Improve sit to stand to:: Modified Independent Improve pivot transfer ability to:: Modified Independent Improve sit to supine to:: Modified Independent Improve gait ability to:: SBA Advance Assistive Device to:: None and Front Wheeled Walker Increase distance walked to (in feet):: 100 PLAN Frequency: 1-2x/day Duration: Until goals are met DISCHARGE RECOMMENDATIONS Discharge Location: SNF v home Other Discharge Equipment: tbd Transport Needs at Discharge: Personal vehicle
--- NOTE | 2025-09-17 15:52 | PHARMACY PROGRESS NOTE ---
Best Possible Medication History Admit Date and Time: 09/17/25 1115 Home Medications Medication Instructions Recorded Confirmed Type albuterol sulfate 90 mcg/actuation 2 puff inhalation Q 4H PRN 09/16/25 09/17/25 History aerosol inhaler shortness of breath or wheez ing alprazolam 1 mg tablet 0.5 - 1 mg PO DAILY PRN anxi ety 09/16/25 09/17/25 History diclofenac potassium 50 mg tablet 50 mg PO DAILY 09/1609/16/25 History dicyclomine 20 mg tablet 20 mg PO BID PRN abdominal p ain 09/16/25 09/17/25 History trazodone 100 mg tablet 100 mg PO HS 09/16/25 History triamcinolone acetonide 0.1 % 1 applic topical DAILY P RN rash 09/16/25 09/17/25 History topical cream verapamil 360 mg 24 hr 360 mg PO DAILY 09/16/2508/31 History capsule,extended release atorvastatin 80 mg tablet 80 mg PO HS 09/17/25 5 History fluoxetine 20 mg capsule 20 mg PO DAILY 09/17/2509/07 History lisinopril 40 mg tablet 40 mg PO DAILY 09/17/2509/07 History Processed by: Pharmacy Medications reviewed in ED?: No Medication History completed: Yes Patient Interview: Completed Secondary Source(s): Written medication list and Insurance records [facility] Statement: As the person ultimately responsible for medication therapy, providers are able to order a medication from an existing home medication list in [facility] via the "Reconcile Routine" prior to Confirmation of that medication by technical support consultant. Such practice is discouraged except when the physician, in their clinical judgment, deems that a medical need exists for a medication without regard to previous use.
--- NOTE | 2025-09-17 17:24 | ADVANCE CARE PLANNING NOTE ---
Advance Care Planning Planning Encounter Date: 09/17/25 Time: 12:51 Diagnosis for Encounter (1) Pulmonary emboli: (2) History of ovarian cancer: (3) Peritoneal carcinomatosis: (4) Cough: Encounter Additional Discussion: Patient is a 75-year-old female with past medical history notable for depression, hypertension. She lives independently on [address] Her several years ago. She has some family friends in the area. Her only living relative is her brother who lives in [place] and is himself suffering from esophageal cancer. Patient developed malignant ascites within the last few weeks. She sought care with her primary care doctor, who sent her for further imaging. This revealed a moderately large adnexal mass. On the day of her admission, she finally has results from paracentesis which reveals that this is likely ovarian cancer with peritoneal spread. The patient has fairly little understanding of this prior to our conversation. She has not met with any providers. She has not seen oncology. Her intent was to get down to [place] where she has a home that she purchased 2 years ago to be closer to her family. Her brother is working to get her in with the [facility] for further workup and treatment. The patient is quite weak. She has no other supports on [address] [place]. She has a friend that comes out from [place] and is helping to take care of her cat while she is in the hospital. He is hoping to clean up her house. He has recommended her to consider discussing with hospice. He is working to clean up her house so that she can possibly go home with hospice. PT is recommending that the only safe discharge for her given her deconditioning would be fpc. Patient is still processing most of this information. She agrees that she is DNR/DNI. She is surprised to find how aggressive her cancer has been so far. She is weighing her options between trying to get down to [place] and do further workup/treatment there. She is apprehensive about enlisting hospice. - Patient would be hospice appropriate, but may not have adequate support in the community. Would likely need to move into an adult family home or skilled facility for hospice - I discussed with her friend Jesus as well as her brother Vikas who is in [place]. Jesus will be at bedside tomorrow we will have further discussions - Patient will need POLST prior to discharge. Code Status: Do Not Attempt Resuscitation Time spent on advance care plannin
[2025-09-18 05:45] LABS: HCT - HEMATOCRIT 29.9 % (37.0-47.0); HGB - HEMOGLOBIN 9.0 g/dL (12.0-16.0); MEAN PLATELET VOLUME 10.4 fL (7.9-10.8); PLT - PLATELET COUNT 450.0 10^3/uL (130-450); RED CELL DISTRIBUTION WIDTH 14.5 % (12.0-15.0)
[2025-09-18 05:56] LABS: ALT ALANINE AMINOTRANSFERASE 7.0 IU/L (10-60); AST ASPARTATE AMINOTRANSFERASE 12.0 IU/L (10-42); BUN - BLOOD UREA NITROGEN 40.0 mg/dL (6-20); CARBON DIOXIDE - CO2 27.0 mmol/L (21-32); CREATININE 2.1 mg/dL (0.6-1.3); GFR - MDRD 23.0 (>89)
--- NOTE | 2025-09-18 07:25 | PROVIDER PROGRESS NOTE ---
Subjective Prog Note Date Prog Note Date: 09/18/25 Prog Note Time: 07:24 Subjective Subjective: Unfortunately presenting with acute kidney injury this morning. No other acute events overnight. No signs of active bleeding. Her hemoglobin did drop from 10.2-9.0. Getting urine studies to evaluate for kidney injury. Avoiding giving extra fluids given her already tense ascites, But notably she does not have a portal hypertension necessarily. 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 Patient is feeling well today. She is in good spirits. She sleeps for most of the day, but when she wakes, she eats well. We had a long conversation with her brother and her at bedside. Her brother was by phone. I shared with her her poor prognosis and anticipate with her metastatic ovarian cancer. She is eager to get down to [place] where she is going to meet with oncology. This seems like a reasonable plan for her. She is arranging for a private airplane to take her down with her cat. We filled out a POLST today. She like to work with case management to set up POA paperwork tomorrow. Current Medications Current Medications Current Medications: Current Medications Generic Name Dose Route Start Last Admin Trade Name Freq PRN Reason Stop Dose Admin Acetaminophen 650 mg 09/17/25 00:59 Acetaminophen 325 Mg Tablet PO Q4HR PRN Pain 1 to 4, or Fever Apixaban 10 mg 09/17/25 14:00 09/17/25 20:05 Apixaban 5 Mg Tablet PO 09/24/25 13:59 10 mg BID AUGUSTUS Administration Apixaban 5 mg 09/24/25 21:00 Apixaban 5 Mg Tablet PO BID AUGUSTUS Atorvastatin Calcium 80 mg 09/17/25 02:00 09/17/25 20:06 Atorvastatin 40 Mg Tablet PO 80 mg HS AUGUSTUS Administration Benzonatate 100 mg 09/17/25 13:17 09/17/25 14:02 Benzonatate 100 Mg Capsule PO 100 mg TID PRN Administration Cough Dicyclomine HCl 20 mg 09/17/25 09:00 09/17/25 20:06 Dicyclomine 10 Mg Capsule PO 20 mg BID AUGUSTUS Administration Fluoxetine HCl 30 mg 09/17/25 09:00 09/17/25 10:05 Fluoxetine 10 Mg Capsule PO 20 mg DAILY AUGUSTUS Administration Guaifenesin/Codeine Phosphate 5 ml 09/17/25 16:57 09/17/25 17:15 Guaifenesin/Codeine 5 Ml Udc PO 5 ml Q6HR PRN Administration Cough Heparin Sodium (Porcine) 1,000 - 2,000 unit 09/16/25 22:29 09/17/25 12:42 Heparin 1,000 Unit/Ml Vial IVP 1,000 unit Q6H PRN Administration aPTT <50 Protocol Lisinopril 40 mg 09/17/25 09:00 09/17/25 10:00 Lisinopril 20 Mg Tablet PO 40 mg DAILY AUGUSTUS Administration Nystatin 1 applic 09/17/25 02:00 09/17/25 20:06 Nystatin Powder 15 Gm TOP 1 applic BID AUGUSTUS Administration Oxycodone HCl 5 mg 09/17/25 16:23 Oxycodone 5 Mg Tablet PO Q4HR PRN Moderate Pain (Level 4-6) Sodium Chloride 10 ml 09/17/25 00:59 Sodium Chloride Flush 0.9% 10 Ml Syringe IVP PRN PRN NEEDED PER PROVIDER ORDERS Sodium Chloride 10 ml 09/17/25 01:00 09/18/25 00:07 Sodium Chloride Flush 0.9% 10 Ml Syringe IVP 10 ml 0100,0900,1700 AUGUSTUS Administration Trazodone HCl 100 mg 09/17/25 02:00 09/17/25 20:05 Trazodone 50 Mg Tablet PO 100 mg HS AUGUSTUS Administration Objective Vital Signs/Intake & Output Reviewed Vital Signs: Yes Vital Signs: Vital Signs x48h Temp Pulse Resp BP Pulse Ox O2 Flow Rate 09/18/25 00:06 36.8 C 83 20 105/55 L 96 2 09/17/25 23:45 2 Intake & Output: Intake & Output 09/15/25 09/16/25 09/17/25 09/18/25 23:59 23:59 23:59 23:59 Intake Total 1592 / 1592 Output Total 550 / 550 Balance 1042 / 1042 Weight (kg) 84.5 kg Objective Comments/Other: GEN: No acute distress HEENT: NC/AT, normal appearance of external ears and nose. Hearing baseline. Cardiac: Regular rate and rhythm, no murmurs. No significant JVP elevation at 30 degrees. Pulm: Lungs CTA bilaterally. No adventitial lung sounds. No wheeze. Chronic nagging dry cough. Abdomen: Soft, nontender. Distended. Ascites present. Persistent leakage from prior para site in her right mid abdomen. Extremities: Moves all 4 extremities equally. Normal tone. Neuro: Face symmetric, CN II through XII intact grossly. Gait exam deferred Psych: Mood euthymic with congruent affect. Lab Results 09/18/25 05:26 09/18/25 05:26 Other Labs: Lab Results x24hrs 09/18/25 09/17/25 09/17/25 Range/Units 05:26 12:10 09:04 WBC 12.4 H 12.1 H (4.8-10.8) x10^3/uL RBC 3.31 L 3.68 L (4.20-5.40) 10^6/uL Hgb 9.0 L 10.2 L (12.0-16.0) g/dL Hct 29.9 L 32.9 L (37.0-47.0) % MCV 90.3 89.4 (81.0-99.0) fL MCH 27.2 27.7 (27.0-31.0) pg MCHC 30.1 L 31.0 L (32.0-36.0) g/dL RDW 14.5 14.5 (12.0-15.0) % Plt Count 450 451 H (130-450) 10^3/uL MPV 10.4 10.1 (7.9-10.8) fL APTT 47.4 H (24.9-33.3) secs Sodium 137 (135-145) mmol/L Potassium 4.6 H (3.5-4.5) mmol/L Chloride 101 (101-111) mmol/L Carbon Dioxide 27 (21-32) mmol/L Anion Gap 9.0 (6-13) BUN 40 H (6-20) mg/dL Creatinine 2.1 H (0.6-1.3) mg/dL Estimated GFR (MDRD) 23 L (>89) Glucose 124 H (74-104) mg/dL Calcium 8.3 L (8.5-10.3) mg/dL Total Bilirubin 0.3 (0.2-1.0) mg/dL AST 12 (10-42) IU/L ALT 7 L (10-60) IU/L Alkaline Phosphatase 74 (42-121) IU/L Total Protein 5.2 L (6.4-8.9) g/dL Albumin 2.6 L (3.2-5.5) g/dL Globulin 2.6 (2.1-4.2) g/dL Albumin/Globulin Ratio 1.0 (1.0-2.2) Diagnostic Imaging Diagnostic Imaging Results: positive Final report reviewed and Read independently Diagnostic Imaging Comments: CTA from 09/16 reveals multiple acute PEs in the bilateral hemithoraces. Agree that there is no significant signs of right heart strain. Ascites is present in the visualized abdomen. Assessment/Plan Problem List (1) Pulmonary emboli: Impression: Patient is weaned to room air. She is satting in the low 90s on room air. She does sometimes dipped below 90 while sleeping. On admission she was found to have multiple acute PEs on her CTA. No right heart strain. Blood pressures remained stable. She was started on a heparin drip in the ED, Transition to DOAC on 09/17. Overall her PE was largely unprovoked, would treat with indefinite anticoagulation. - Continue loading dose Eliquis 10 mg twice daily - 1 week loading dose Eliquis followed by indefinite twice daily 5 mg Eliquis - Continue incentive spirometer, patient is ambivalent about doing this. Qualifiers: Pulmonary embolism type: multiple subsegmental (without acute cor pulmonale) Qualified Code(s): I26.94 - Multiple subsegmental thrombotic pulmonary emboli without acute cor pulmonale (2) WINSTON (acute kidney injury): Impression: Patient's creatinine increased on 09/18. Up to 2.1. Baseline around 1.3. Urine studies were ordered this morning, they have just returned. Indicative of a prerenal injury. - Will give fluids overnight slowly given her ascites - Consider albumin if creatinine increased tomorrow - Continue encourage oral intake, patient doing pretty good when I have been present - Trend BMP a.m. (3) History of ovarian cancer: (4) Peritoneal carcinomatosis: Impression: Stable ascites. She has leakage from her prior paracentesis site. I put a stitch in this today. This is stopped from draining after 1 week. Patient has a very recent diagnosis of ovarian cancer and peritoneal carcinomatosis. She was just informed of this possible diagnosis on Halloween. She was found to have moderately sized irregular adnexal mass measuring up to 5.[address] scan[address] was prompted by rapidly accumulating ascites and abdominal distention. Her liver is unremarkable. She had an ultrasound-guided paracentesis on 09/12. 5 L was removed. Had persistent peritoneal drainage until suture was placed 09/18. This stopped the drainage. Pathology from that paracentesis just returned as of 09/17, revealing adenocarcinoma favoring Mullerian primary. This to be consistent with her imaging. This is ER positive. Normal expression of mismatch repair genes. Given attendant peritoneal carcinomatosis, the patient has a relatively poor outlook. Without treatment she may have a 6-month survival. With treatment it may be as much is a year. I shared with her prognosis on 09/18. She was understandably saddened by this news. Unclear if her ER positivity may give her more targeted therapies. - Patient is wanting to follow-up with [facility] in [place], We will fax our available records as we get closer - Patient is clear that she is DNR, she vacillates between comfort measures and selective treatment. Overall her desire to seek consult with oncology is more supportive of selective treatment. - Goal to discharge and fly soon thereafter to [place] where she has social supports - Appreciate case management support with GRICELDA paperwork, suspect 09/19 - Monitor for signs of SBP (5) Cough: Impression: Patient has a dry chronic cough which she says has been going on since long before her PE. She has not trialed anything prior to this hospitalization. She is reporting some pleuritic pain associated with her cough. - Antitussives, Tessalon as primary, Robitussin AC as secondary - Tylenol available for pain - As needed oral narcotics available for pain - Consider lidocaine patch for pleuritic chest pain, ordered as needed
[2025-09-18] MEDS: oxyCODONE 5 MG TABLET PO PRN (16:57)
[2025-09-18 17:32] LABS: TOTAL PROTEIN,URINE RANDOM 62.0 mg/dL
[2025-09-18 19:33] LABS: OCCULT BLOOD,URINE NEGATIVE (NEGATIVE)
[2025-09-18 19:34] LABS: EPITHELIAL CELLS,UR RARE Renal Tubular /HPF (<= Few); GLUCOSE, URINE (UA) NEGATIVE (NEGATIVE); KETONES,URINE (UA) NEGATIVE (NEGATIVE); SQUAMOUS EPITHELIAL CELL,UR FEW Squamous (<= Few)
[2025-09-18 19:35] LABS: AMORPHOUS SEDIMENT,UR Few /LPF; CRYSTALS,URINE 0-2 Uric Acid /LPF
[2025-09-18] MEDS: LACTATED RINGERS 1,000 ML IV SCH (19:49)
[2025-09-19 06:03] LABS: BUN - BLOOD UREA NITROGEN 48.0 mg/dL (6-20); CARBON DIOXIDE - CO2 25.0 mmol/L (21-32); CREATININE 1.9 mg/dL (0.6-1.3); GFR - MDRD 26.0 (>89)
[2025-09-19] MEDS: BENZOCAINE/MENTHOL LOZENGE MM PRN (06:11)
--- NOTE | 2025-09-19 07:16 | PROVIDER PROGRESS NOTE ---
Subjective Prog Note Date Prog Note Date: 09/19/25 Prog Note Time: 07:14 Subjective Subjective: Creatinine responsive to fluids yesterday. Her K is elevated again today. Given her fluid overload, I am holding her other vasoactive medications and starting on diuretic therapy. Patient reports that she is feeling okay. She is having pain along her left side from her shoulder down to her hip. She has pain across her abdomen with fullness. Nothing focal. She has been sleeping a lot. Denies any fevers or chills. Remains hemodynamically stable. She denies any nausea or vomiting. Denies dysuria. She reports good response to diuretic therapy this morning. This afternoon, I met with the patient and her friend Jesus at bedside. Jesus's was also present. Their questions were answered. Plan for Jesus still to take the patient's home to [facility] and then to the airport to fly down to [place] upon discharge. Patient has not yet scheduled this flight. Current Medications Current Medications Current Medications: Current Medications Generic Name Dose Route Start Last Admin Trade Name Freq PRN Reason Stop Dose Admin Acetaminophen 650 mg 09/17/25 00:59 Acetaminophen 325 Mg Tablet PO Q4HR PRN Pain 1 to 4, or Fever Apixaban 10 mg 09/17/25 14:00 09/18/25 20:27 Apixaban 5 Mg Tablet PO 09/24/25 13:59 10 mg BID AUGUSTUS Administration Apixaban 5 mg 09/24/25 21:00 Apixaban 5 Mg Tablet PO BID AUGUSTUS Atorvastatin Calcium 80 mg 09/17/25 02:00 09/18/25 20:27 Atorvastatin 40 Mg Tablet PO 80 mg HS AUGUSTUS Administration Benzonatate 100 mg 09/17/25 13:17 09/17/25 14:02 Benzonatate 100 Mg Capsule PO 100 mg TID PRN Administration Cough Dicyclomine HCl 20 mg 09/17/25 09:00 09/18/25 20:26 Dicyclomine 10 Mg Capsule PO 20 mg BID AUGUSTUS Administration Fluoxetine HCl 30 mg 09/17/25 09:00 09/18/25 09:00 Fluoxetine 10 Mg Capsule PO 20 mg DAILY AUGUSTUS Administration Furosemide 20 mg 09/19/25 08:00 Furosemide 20 Mg/2 Ml Vial IVP BIDDIURETIC AUGUSTUS Guaifenesin/Codeine Phosphate 5 ml 09/17/25 16:57 09/18/25 19:54 Guaifenesin/Codeine 5 Ml Udc PO 5 ml Q6HR PRN Administration Cough Lactated Ringer's 1,000 mls @ 83.333 mls/hr 09/18/25 20:00 09/18/25 22:33 Lr IV 83.33 mls/hr .Q12H AUGUSTUS Infusion Nystatin 1 applic 09/17/25 02:00 09/18/25 20:27 Nystatin Powder 15 Gm TOP 1 applic BID AUGUSTUS Administration Oxycodone HCl 5 mg 09/17/25 16:23 09/18/25 16:57 Oxycodone 5 Mg Tablet PO 5 mg Q4HR PRN Administration Moderate Pain (Level 4-6) Sodium Chloride 10 ml 09/17/25 00:59 Sodium Chloride Flush 0.9% 10 Ml Syringe IVP PRN PRN NEEDED PER PROVIDER ORDERS Sodium Chloride 10 ml 09/17/25 01:00 09/19/25 01:00 Sodium Chloride Flush 0.9% 10 Ml Syringe IVP Not Given 0100,0900,1700 AUGUSTUS Throat Lozenges 1 lozenge 09/19/25 06:01 09/19/25 06:11 Benzocaine/Menthol Lozenge MM 1 lozenge Q2HR PRN Administration Throat pain Trazodone HCl 100 mg 09/17/25 02:00 09/18/25 20:26 Trazodone 50 Mg Tablet PO 100 mg HS AUGUSTUS Administration Objective Vital Signs/Intake & Output Reviewed Vital Signs: Yes Vital Signs: Vital Signs x48h Temp Pulse Resp BP Pulse Ox 09/18/25 23:48 36.5 C 99 20 102/61 93 Intake & Output: Intake & Output 09/16/25 09/17/25 09/18/25 09/19/25 23:59 23:59 23:59 23:59 Intake Total 1592 / 1592 1128 / 1128 357 / 357 Output Total 550 / 550 300 / 300 400 / 400 Balance 1042 / 1042 828 / 828 -43 / -43 Weight (kg) 84.5 kg Objective Comments/Other: GEN: No acute distress HEENT: NC/AT, normal appearance of external ears and nose. Hearing baseline. Cardiac: Regular rate and rhythm, no murmurs. No significant JVP elevation at 30 degrees. Pulm: Lungs CTA bilaterally. No adventitial lung sounds. No wheeze. Chronic nagging dry cough. Abdomen: Soft, nontender. Distended. Ascites present. Stitch placed in prior paracentesis site in right medial abdomen Extremities: Moves all 4 extremities equally. Normal tone. Neuro: Face symmetric, CN II through XII intact grossly. Gait exam deferred Psych: Mood euthymic with congruent affect. Lab Results 09/18/25 05:26 09/19/25 05:30 Other Labs: Lab Results x24hrs 09/19/25 09/18/25 Range/Units 05:30 16:45 Sodium 137 (135-145) mmol/L Potassium 4.6 H (3.5-4.5) mmol/L Chloride 104 (101-111) mmol/L Carbon Dioxide 25 (21-32) mmol/L Anion Gap 8.0 (6-13) BUN 48 H (6-20) mg/dL Creatinine 1.9 H (0.6-1.3) mg/dL Estimated GFR (MDRD) 26 L (>89) Glucose 99 (74-104) mg/dL Calcium 8.4 L (8.5-10.3) mg/dL Urine Color DARK YELLOW Urine Clarity HAZY (CLEAR) Urine pH 5.0 (5.0-7.5) PH Ur Specific [place] 1.025 (1.002-1.030) Urine Protein TRACE (NEGATIVE) mg/dL Urine Glucose (UA) NEGATIVE (NEGATIVE) mg/dL Urine Ketones NEGATIVE (NEGATIVE) mg/dL Urine Occult Blood NEGATIVE (NEGATIVE) Urine Nitrite NEGATIVE (NEGATIVE) Urine Bilirubin MODERATE H (NEGATIVE) Urine Urobilinogen 0.2 (NORMAL) (NORMAL) E.U./dL Ur Leukocyte Esterase NEGATIVE (NEGATIVE) Urine RBC 0-5 (0-5) /HPF Urine WBC 0-3 (0-5) /HPF Ur Epithelial Cells RARE Renal Tubular (<= Few) /HPF Ur Squamous Epith Cells FEW Squamous (<= Few) Urine Crystals 0-2 Uric Acid /LPF Amorphous Sediment Few /LPF Urine Bacteria Moderate H (None Seen) /HPF Urine Culture Comments NOT INDICATED U Random Total Protein 62 mg/dL Urine Creatinine 264.8 mg/dL Urine Sodium 15.6 mmol/L Assessment/Plan Problem List (1) Pulmonary emboli: Impression: Patient is now on room air. Denies any chest pain. Tolerating DOAC well without any bleeding. On admission she was found to have multiple acute PEs on her CTA. No right heart strain. Blood pressures remained stable. She was started on a heparin drip in the ED, Transition to DOAC on 09/17. Overall her PE was largely unprovoked, would treat with indefinite anticoagulation. - Continue loading dose Eliquis 10 mg twice daily, through 09/24 - After loading dose Eliquis indefinite twice daily 5 mg Eliquis - Monitor renal function, as below Qualifiers: Pulmonary embolism type: multiple subsegmental (without acute cor pulmonale) Qualified Code(s): I26.94 - Multiple subsegmental thrombotic pulmonary emboli without acute cor pulmonale (2) WINSTON (acute kidney injury): Impression: Creatinine improving somewhat. Recall her FENa was 0.1%. Creatinine increased from 1.3 up to 2.1 on initial arrival. Today it improved to 1.9. She has been on fluids. - Increase fluid rates to 100 mL/h - Trend BMP a.m. (3) History of ovarian cancer: (4) Peritoneal carcinomatosis: Impression: Continues to have very tense ascites, making her uncomfortable. She is reticent to get another paracentesis after her last 1 had a persistent leak. Patient has a very recent diagnosis of ovarian cancer and peritoneal carcinomatosis. She was just informed of this possible diagnosis on . She was found to have moderately sized irregular adnexal mass measuring up to 5.[address] was prompted by rapidly accumulating ascites and abdominal distention. Her liver is unremarkable. She had an ultrasound-guided paracentesis on 09/12. 5 L was removed. Had persistent peritoneal drainage until suture was placed 09/18. This stopped the drainage. Pathology from that paracentesis just returned as of 09/17, revealing adenocarcinoma favoring Mullerian primary. This to be consistent with her imaging. This is ER positive. Normal expression of mismatch repair genes. Given attendant peritoneal carcinomatosis, the patient has a relatively poor outlook. Without treatment she may have a 6-month survival. With treatment it may be as much is a year. I shared with her prognosis on 09/18. She was understandably saddened by this news. Unclear if her ER positivity may give her more targeted therapies. - Started on IV diuretic today, patient is Lasix wolf 20 mg IV twice daily o Hold other vasoactive medications at this time. - Monitor BMP a.m. - If potassium comes down, likely start her on Lasix/Aldactone - Patient is wanting to follow-up with [facility] in [place], We will fax our available records as we get closer - Patient is clear that she is DNR, she vacillates between comfort measures and selective treatment. Overall her desire to seek consult with oncology is more supportive of selective treatment. - Goal to discharge and fly soon thereafter to [place] where she has social supports - Appreciate case management support with GRICELDA galindo, Present at bedside, encouraged patient to work on this. - Monitor for signs of SBP (5) Cough: Impression: Patient has a dry chronic cough which she says has been going on since long before her PE. She has not trialed anything prior to this hospitalization. She is reporting some pleuritic pain associated with her cough. - Antitussives, Tessalon as primary, Robitussin AC as secondary - Tylenol and oral narcotics both available for pain as needed - Consider lidocaine patch for pleuritic chest pain, ordered as needed (6) Hyperkalemia: Impression: Patient has hyperkalemia mild for 2 days in a row now. She is on lisinopril. Her K is 4.6 yesterday today. 4.5 on arrival. - As above, discontinuing lisinopril for now while on diuretic therapy - Lasix as above - If K gets around 4, will start on Lasix and Aldactone combo - Monitor BMP AM I spent a total of 42 minutes in the care of this patient today. This time was spent reviewing labs, vital signs, imaging, interviewing and examining the patient, and discussing plan of care with them and their other care providers
[2025-09-19] MEDS: FUROSEMIDE 20 MG/2 ML VIAL IVP SCH (08:58)
[2025-09-20] MEDS: SODIUM CHLORIDE FLUSH 0.9% 10 ML SYRINGE IVP PRN (05:32)
[2025-09-20 06:12] LABS: HCT - HEMATOCRIT 31.7 % (37.0-47.0); HGB - HEMOGLOBIN 9.8 g/dL (12.0-16.0); MEAN PLATELET VOLUME 11.0 fL (7.9-10.8); NRBC ABSOLUTE COUNT (AUTO) 0.00 x10^3/uL; NUCLEATED RED BLOOD CELLS AUTO 0.0 /100WBC; PLT - PLATELET COUNT 433 10^3/uL (130-450); RED CELL DISTRIBUTION WIDTH 14.6 % (12.0-15.0)
[2025-09-20 06:32] LABS: BUN - BLOOD UREA NITROGEN 44.0 mg/dL (6-20); CARBON DIOXIDE - CO2 25.0 mmol/L (21-32); CREATININE 1.4 mg/dL (0.6-1.3); GFR - MDRD 36.0 (>89)
[2025-09-20] MEDS: FUROSEMIDE 40 MG/4 ML VIAL IVP SCH (13:38)
--- NOTE | 2025-09-20 15:02 | PROVIDER PROGRESS NOTE ---
Subjective Prog Note Date Prog Note Date: 09/20/25 Prog Note Time: 15:02 Subjective Subjective: Patient remains clinically stable. She is on room air. Patient does ambulate to the bathroom. She has been up to the chair occasionally but she frequently is just in bed sleeping. She reports improvement in her cough. Coming less frequently now. She has stable and improving pain along her left flank still. She is otherwise having abdominal fullness in the setting of her ascites. She is peeing frequently with the Lasix. Denies any dysuria. Denies fevers, chills, chest pain or dyspnea. I asked her about her motivations to regarding why she has not yet reached out to schedule her flight. She was unclear on why she has not. She reiterates to me the steps that were taken days ago. I asked her specifically if she was just ready to go home and with private caregivers here in [place]. She says that she would not want to enroll in hospice here. She still wants to get down to [place]. She has not yet filled out her POA paperwork. I will go back to bedside later this afternoon and filled out with her Current Medications Current Medications Current Medications: Current Medications Generic Name Dose Route Start Last Admin Trade Name Freq PRN Reason Stop Dose Admin Acetaminophen 650 mg 09/17/25 00:59 Acetaminophen 325 Mg Tablet PO Q4HR PRN Pain 1 to 4, or Fever Apixaban 10 mg 09/17/25 14:00 09/20/25 07:56 Apixaban 5 Mg Tablet PO 09/24/25 13:59 10 mg BID AUGUSTUS Administration Apixaban 5 mg 09/24/25 21:00 Apixaban 5 Mg Tablet PO BID AUGUSTUS Atorvastatin Calcium 80 mg 09/17/25 02:00 09/19/25 20:49 Atorvastatin 40 Mg Tablet PO 80 mg HS AUGUSTUS Administration Benzonatate 100 mg 09/17/25 13:17 09/17/25 14:02 Benzonatate 100 Mg Capsule PO 100 mg TID PRN Administration Cough Dicyclomine HCl 20 mg 09/17/25 09:00 09/20/25 07:56 Dicyclomine 10 Mg Capsule PO 20 mg BID AUGUSTUS Administration Fluoxetine HCl 30 mg 09/17/25 09:00 09/20/25 07:58 Fluoxetine 10 Mg Capsule PO 30 mg DAILY AUGUSTUS Administration Furosemide 40 mg 09/20/25 14:00 09/20/25 13:38 Furosemide 40 Mg/4 Ml Vial IVP 40 mg BIDDIURETIC AUGUSTUS Administration Guaifenesin/Codeine Phosphate 5 ml 09/17/25 16:57 09/19/25 11:15 Guaifenesin/Codeine 5 Ml Udc PO 5 ml Q6HR PRN Administration Cough Lactated Ringer's 1,000 mls @ 100 mls/hr 09/18/25 20:00 09/20/25 14:17 Lr IV 100 mls/hr .Q10H AUGUSTUS Administration Nystatin 1 applic 09/17/25 02:00 09/20/25 07:59 Nystatin Powder 15 Gm TOP 1 applic BID AUGUSTUS Administration Oxycodone HCl 5 mg 09/17/25 16:23 09/20/25 13:43 Oxycodone 5 Mg Tablet PO 5 mg Q4HR PRN Administration Moderate Pain (Level 4-6) Sodium Chloride 10 ml 09/17/25 00:59 09/20/25 05:32 Sodium Chloride Flush 0.9% 10 Ml Syringe IVP 10 ml PRN PRN Administration NEEDED PER PROVIDER ORDERS Sodium Chloride 10 ml 09/17/25 01:00 09/20/25 07:59 Sodium Chloride Flush 0.9% 10 Ml Syringe IVP 10 ml 0100,0900,1700 AUGUSTUS Administration Throat Lozenges 1 lozenge 09/19/25 06:01 09/19/25 06:11 Benzocaine/Menthol Lozenge MM 1 lozenge Q2HR PRN Administration Throat pain Trazodone HCl 100 mg 09/17/25 02:00 09/19/25 20:49 Trazodone 50 Mg Tablet PO 100 mg HS AUGUSTUS Administration Objective Vital Signs/Intake & Output Reviewed Vital Signs: Yes Vital Signs: Vital Signs x48h Temp Pulse Resp BP Pulse Ox 09/20/25 08:00 2.6 C L 89 20 108/67 92 Intake & Output: Intake & Output 09/17/25 09/18/25 09/19/25 09/20/25 23:59 23:59 23:59 23:59 Intake Total 1592 / 1592 1128 / 1128 3267 / 3267 1989 Output Total 550 / 550 300 / 300 1600 / 1600 1250 / 1250 Balance 1042 / 1042 828 / 828 1667 / 1667 740 / 740 Objective Comments/Other: GEN: No acute distress HEENT: NC/AT, normal appearance of external ears and nose. Hearing baseline. Cardiac: Regular rate and rhythm, no murmurs. No significant JVP elevation at 30 degrees. Pulm: Lungs CTA bilaterally. No adventitial lung sounds. No wheeze. Chronic nagging dry cough. Abdomen: Soft, nontender. Distended. Ascites present. Stitch in situ in prior paracentesis site in right medial abdomen Extremities: Moves all 4 extremities equally. Normal tone. Neuro: Face symmetric, CN II through XII intact grossly. Gait exam deferred Psych: Mood euthymic with congruent affect. Lab Results 09/20/25 05:40 09/20/25 05:40 Other Labs: Lab Results x24hrs 09/20/25 Range/Units 05:40 WBC 9.8 (4.8-10.8) x10^3/uL RBC 3.52 L (4.20-5.40) 10^6/uL Hgb 9.8 L (12.0-16.0) g/dL Hct 31.7 L (37.0-47.0) % MCV 90.1 (81.0-99.0) fL MCH 27.8 (27.0-31.0) pg MCHC 30.9 L (32.0-36.0) g/dL RDW 14.6 (12.0-15.0) % Plt Count 433 (130-450) 10^3/uL MPV 11.0 H (7.9-10.8) fL Neut # (Auto) 7.8 H (1.5-6.6) 10^3/uL Lymph # (Auto) 0.8 L (1.5-3.5) 10^3/uL Andrews # (Auto) 0.9 (0.0-1.0) 10^3/uL Eos # (Auto) 0.3 (0.0-0.7) 10^3/uL Baso # (Auto) 0.0 (0.0-0.1) 10^3/uL Absolute Nucleated RBC 0.00 x10^3/uL Nucleated RBC % 0.0 /100WBC Sodium 136 (135-145) mmol/L Potassium 4.8 H (3.5-4.5) mmol/L Chloride 103 (101-111) mmol/L Carbon Dioxide 25 (21-32) mmol/L Anion Gap 8.0 (6-13) BUN 44 H (6-20) mg/dL Creatinine 1.4 H (0.6-1.3) mg/dL Estimated GFR (MDRD) 36 L (>89) Glucose 98 (74-104) mg/dL Calcium 8.5 (8.5-10.3) mg/dL Assessment/Plan Problem List (1) Pulmonary emboli: Impression: Patient continues to tolerate DOAC without any significant bleeding. Her blood counts remained stable. No longer trending. She remains on room air with reasonable saturations. On admission she was found to have multiple acute PEs on her CTA. No right heart strain. Blood pressures remained stable. She was started on a heparin drip in the ED, Transition to DOAC on 09/17. Overall her PE was largely unprovoked, would treat with indefinite anticoagulation. - Continue loading dose Eliquis 10 mg twice daily, through 09/24 - After loading dose Eliquis indefinite twice daily 5 mg Eliquis - Monitor renal function, as below Qualifiers: Pulmonary embolism type: multiple subsegmental (without acute cor pulmonale) Qualified Code(s): I26.94 - Multiple subsegmental thrombotic pulmonary emboli without acute cor pulmonale (2) WINSTON (acute kidney injury): Impression: Creatinine continues to improve. 1.3 on arrival, went up to 2.1 with her not eating or drinking as much. Has been coming down with fluids. Concomitant diuretic as below. Creatinine 1.3 > 2.1 > 1.9 > 1.4 - Stopping her fluids at this time - Trend BMP a.m. - Med ready tomorrow if her creatinine remains stable. (3) History of ovarian cancer: (4) Peritoneal carcinomatosis: Impression: Continues to try and diurese off her ascites fluid. She is not progressing that much. Still has fairly tense ascites. Patient has a very recent diagnosis of ovarian cancer and peritoneal carcinomatosis. She was just informed of this possible diagnosis on Halloween. She was found to have moderately sized irregular adnexal mass measuring up to 5.[address] scan[address] was prompted by rapidly accumulating ascites and abdominal distention. Her liver is unremarkable. She had an ultrasound-guided paracentesis on 09/12. 5 L was removed. Had persistent peritoneal drainage until suture was placed 09/18. This stopped the drainage. Pathology from that paracentesis just returned as of 09/17, revealing adenocarcinoma favoring Mullerian primary. This to be consistent with her imaging. This is ER positive. Normal expression of mismatch repair genes. Given attendant peritoneal carcinomatosis, the patient has a relatively poor outlook. Without treatment she may have a 6-month survival. With treatment it may be as much is a year. I shared with her prognosis on 09/18. She was understandably saddened by this news. Unclear if her ER positivity may give her more targeted therapies. - Increase Lasix to 40 mg twice daily IV - Monitor BMP a.m. - Likely discharge on 40 mg oral Lasix daily - Patient is wanting to follow-up with [facility] in [place], We will fax our available records as we get closer - Patient is clear that she is DNR, she vacillates between comfort measures and selective treatment. Overall her desire to seek consult with oncology is more supportive of selective treatment. - Goal to discharge and fly soon thereafter to [place] where she has social supports, Patient lacks motivation to call the marine pilot for whom she wants to fly her down to [place]. o I continue to try and reinforce this as the best option for her - I will go to work with the patient on her POA paperwork this afternoon. - Monitor for signs of SBP (5) Cough: Impression: Cough is improving. Suspect it is improving with resorption of some of her pulmonary emboli. She has not trialed anything prior to this hospitalization. She is reporting some pleuritic pain associated with her cough. - Antitussives, Tessalon as primary, Robitussin AC as secondary - Tylenol and oral narcotics both available for pain as needed - Consider lidocaine patch for pleuritic chest pain, ordered as needed (6) Hyperkalemia: Impression: Patient continues to have persistent hyperkalemia. She is on Lasix as above. Her hyperkalemia is mild. Discontinue lisinopril indefinitely. Continues on diuretics. - Lasix as above - Monitor BMP AM I spent a total of 57 minutes in the care of this patient today. This time was spent reviewing labs, vital signs, imaging, interviewing and examining the patient, and discussing plan of care with them and their other care providers. Extensive time spent with the patient filling out her POA paperwork.
[2025-09-21 06:36] LABS: BUN - BLOOD UREA NITROGEN 34.0 mg/dL (6-20); CARBON DIOXIDE - CO2 26.0 mmol/L (21-32); CREATININE 0.9 mg/dL (0.6-1.3); GFR - MDRD 61.0 (>89)
[2025-09-21] MEDS: FUROSEMIDE 40 MG TABLET PO SCH (08:25)
[2025-09-21] MEDS: ONDANSETRON 4 MG/2 ML VIAL IVP PRN (14:52)
--- NOTE | 2025-09-21 15:20 | PROVIDER PROGRESS NOTE ---
Subjective Prog Note Date Prog Note Date: 09/21/25 Prog Note Time: 15:17 Subjective Subjective: No acute events overnight. Her renal function is stabilized. She is off of fluids. Her ascites subjectively looks better today. She does not feel its improved at all. Negative fluid balance over the last 24 hours. Denies fevers or chills, denies chest pain or dyspnea. Denies dysuria. We talked at length with her close friend Jesus at bedside. She is medically stable for discharge today. She needs to discharge to a supportive environment, and it would be unsafe for her to go home alone. She is also very nervous about going home alone. Jesus graciously offered that she can stay with him until she flies to [place] to be closer to her brother. He briefly offered that she could come today with him. She became quite agitated at this suggestion. He stated that it would be helpful for him to set up some space for her and that Tuesday may be easier. We agreed that she will discharge home Tuesday with Jesus. She will need to continue on diuretics for ascites management and apixaban. Current Medications Current Medications Current Medications: Current Medications Generic Name Dose Route Start Last Admin Trade Name Freq PRN Reason Stop Dose Admin Acetaminophen 650 mg 09/17/25 00:59 Acetaminophen 325 Mg Tablet PO Q4HR PRN Pain 1 to 4, or Fever Apixaban 10 mg 09/17/25 14:00 09/21/25 08:25 Apixaban 5 Mg Tablet PO 09/24/25 13:59 10 mg BID AUGUSTUS Administration Apixaban 5 mg 09/24/25 21:00 Apixaban 5 Mg Tablet PO BID AUGUSTUS Atorvastatin Calcium 80 mg 09/17/25 02:00 09/20/25 20:51 Atorvastatin 40 Mg Tablet PO 80 mg HS AUGUSTUS Administration Benzonatate 100 mg 09/17/25 13:17 09/17/25 14:02 Benzonatate 100 Mg Capsule PO 100 mg TID PRN Administration Cough Dicyclomine HCl 20 mg 09/17/25 09:00 09/21/25 08:25 Dicyclomine 10 Mg Capsule PO 20 mg BID AUGUSTUS Administration Fluoxetine HCl 30 mg 09/17/25 09:00 09/21/25 08:25 Fluoxetine 10 Mg Capsule PO 30 mg DAILY AUGUSTUS Administration Furosemide 40 mg 09/21/25 08:00 09/21/25 14:13 Furosemide 40 Mg Tablet PO 40 mg BIDDIURETIC AUGUSTUS Administration Guaifenesin/Codeine Phosphate 5 ml 09/17/25 16:57 09/21/25 00:12 Guaifenesin/Codeine 5 Ml Udc PO 5 ml Q6HR PRN Administration Cough Nystatin 1 applic 09/17/25 02:00 09/21/25 08:25 Nystatin Powder 15 Gm TOP 1 applic BID AUGUSTUS Administration Ondansetron HCl 4 mg 09/21/25 14:46 09/21/25 14:52 Ondansetron 4 Mg/2 Ml Vial IVP 4 mg Q4HR PRN Administration Nausea / Vomiting Oxycodone HCl 5 mg 09/17/25 16:23 09/21/25 03:58 Oxycodone 5 Mg Tablet PO 5 mg Q4HR PRN Administration Moderate Pain (Level 4-6) Sodium Chloride 10 ml 09/17/25 00:59 09/20/25 05:32 Sodium Chloride Flush 0.9% 10 Ml Syringe IVP 10 ml PRN PRN Administration NEEDED PER PROVIDER ORDERS Sodium Chloride 10 ml 09/17/25 01:00 09/21/25 08:26 Sodium Chloride Flush 0.9% 10 Ml Syringe IVP 10 ml 0100,0900,1700 AUGUSTUS Administration Throat Lozenges 1 lozenge 09/19/25 06:01 09/19/25 06:11 Benzocaine/Menthol Lozenge MM 1 lozenge Q2HR PRN Administration Throat pain Trazodone HCl 100 mg 09/17/25 02:00 09/20/25 20:51 Trazodone 50 Mg Tablet PO 100 mg HS AUGUSTUS Administration Objective Vital Signs/Intake & Output Reviewed Vital Signs: Yes Vital Signs: Vital Signs x48h Temp Pulse Resp BP Pulse Ox 09/21/25 07:22 36.5 C 94 18 127/66 92 Intake & Output: Intake & Output 09/18/25 09/19/25 09/20/25 09/21/25 23:59 23:59 23:59 23:59 Intake Total 1128 / 1128 3267 / 3267 2110 / 2110 220 / 220 Output Total 300 / 300 1600 / 1600 1750 / 1750 1200 / 1200 Balance 828 / 828 1667 / 1667 360 / 360 -980 / -980 Objective Comments/Other: GEN: No acute distress HEENT: NC/AT, normal appearance of external ears and nose. Hearing baseline. Cardiac: Regular rate and rhythm, no murmurs. No significant JVP elevation at 30 degrees. Pulm: Lungs CTA bilaterally. No adventitial lung sounds. No wheeze. Minimal cough during our interview today. Abdomen: Soft, nontender. Distended. Ascites present, but appears improved. Abdomen less tense than yesterday. Nontender. Stitch in situ in prior paracentesis site in right medial abdomen Extremities: Moves all 4 extremities equally. Normal tone. Neuro: Face symmetric, CN II through XII intact grossly. Gait exam deferred Psych: Mood euthymic with congruent affect. Lab Results 09/20/25 05:40 09/21/25 05:30 Other Labs: Lab Results x24hrs 09/21/25 Range/Units 05:30 Sodium 136 (135-145) mmol/L Potassium 4.3 (3.5-4.5) mmol/L Chloride 102 (101-111) mmol/L Carbon Dioxide 26 (21-32) mmol/L Anion Gap 8.0 (6-13) BUN 34 H (6-20) mg/dL Creatinine 0.9 (0.6-1.3) mg/dL Estimated GFR (MDRD) 61 L (>89) Glucose 107 H (74-104) mg/dL Calcium 8.7 (8.5-10.3) mg/dL Assessment/Plan Problem List (1) Pulmonary emboli: Impression: Patient continues to tolerate DOAC without any significant bleeding. Her blood counts remained stable. No longer trending. She remains on room air with reasonable saturations. On admission she was found to have multiple acute PEs on her CTA. No right heart strain. Blood pressures remained stable. She was started on a heparin drip in the ED, Transition to DOAC on 09/17. Overall her PE was largely unprovoked, would treat with indefinite anticoagulation. - Continue loading dose Eliquis 10 mg twice daily, through 09/24 - After loading dose Eliquis indefinite twice daily 5 mg Eliquis - Med ready Qualifiers: Pulmonary embolism type: multiple subsegmental (without acute cor pulmonale) Qualified Code(s): I26.94 - Multiple subsegmental thrombotic pulmonary emboli without acute cor pulmonale (2) WINSTON (acute kidney injury): Impression: Creatinine now normal. 0.9. No longer on fluids. Continue to diurese as below. No evidence of contraction alkalosis. Recall that she presented with a creatinine of 1.3 that peaked at 2.1. Urine studies suggestive of prerenal etiology. Suspect she was intravascularly dry. Improved with fluids. Creatinine 1.3 > 2.1 > 1.9 > 1.4 > 0.9 - Encourage oral hydration - Trend BMP a.m. - Patient is medically ready for discharge. (3) History of ovarian cancer: (4) Peritoneal carcinomatosis: Impression: Responding to diuresis. Ascites improving somewhat today. Patient has a very recent diagnosis of ovarian cancer and peritoneal carcinomatosis. She was just informed of this possible diagnosis on . She was found to have moderately sized irregular adnexal mass measuring up to 5.[address] was prompted by rapidly accumulating ascites and abdominal distention. Her liver is unremarkable. She had an ultrasound-guided paracentesis on 09/12. 5 L was removed. Had persistent peritoneal drainage until suture was placed 09/18. This stopped the drainage. Pathology from that paracentesis just returned as of 09/17, revealing adenocarcinoma favoring Mullerian primary. This to be consistent with her imaging. This is ER positive. Normal expression of mismatch repair genes. Given attendant peritoneal carcinomatosis, the patient has a relatively poor outlook. Without treatment she may have a 6-month survival. With treatment it may be as much is a year. I shared with her prognosis on 09/18. She was understandably saddened by this news. Unclear if her ER positivity may give her more targeted therapies. - Transition to oral lasix 40mg bid in anticipation of d/c in coming days - Monitor BMP a.m. - Likely discharge on 40 mg oral Lasix once or twice - Patient is wanting to follow-up with [facility] in [place], she has a home down there but has not yet moved in. - Patient is clear that she is DNR, she vacillates between comfort measures and selective treatment. Overall her desire to seek consult with oncology is more supportive of selective treatment. - Patient likely to discharge immediately from the hospital to home with her friend Jesus and his , then arrange her move to [place]. o He will be ready to take her on 09/23. - Likely remove suture 09/22 or 09/23 - Monitor for signs of SBP (5) Cough: Impression: Cough again is intervally improved. She has not trialed anything prior to this hospitalization. She is reporting some pleuritic pain associated with her cough. Suspect the etiology of her cough is from her pulmonary emboli, possibly some fluid component with her ascites. Improving with diuresis and anticoagulation as above. - Antitussives, Tessalon as primary, Robitussin AC as secondary - Tylenol and oral narcotics both available for pain as needed - Consider lidocaine patch for pleuritic chest pain, ordered as needed (6) Hyperkalemia: Impression: Resolved with IV Lasix. Discontinue lisinopril indefinitely. Continues on diuretics. - Lasix as above - Monitor BMP AM I spent a total of 41 minutes in the care of this patient today. This time was spent reviewing labs, vital signs, imaging, interviewing and examining the patient, and discussing plan of care with them and their other care providers.
[2025-09-22 06:11] LABS: BUN - BLOOD UREA NITROGEN 34.0 mg/dL (6-20); CARBON DIOXIDE - CO2 29.0 mmol/L (21-32); CREATININE 1.3 mg/dL (0.6-1.3); GFR - MDRD 40.0 (>89)
--- NOTE | 2025-09-22 15:28 | PROVIDER PROGRESS NOTE ---
Subjective Prog Note Date Prog Note Date: 09/22/25 Prog Note Time: 15:25 Subjective Subjective: No acute events overnight. Patient's renal function remained stable. Her vital signs remained stable. Per nursing, she needed supplemental oxygen while sleeping, desaturations to 86 overnight. She continues to have significant abdominal ascites. Not improving much with diuretic therapy. She has not been urinating much despite twice daily diuretic. Patient denies chest pain, dyspnea. Denies dysuria, nausea or vomiting. She has some abdominal fullness and pressure. Current Medications Current Medications Current Medications: Current Medications Generic Name Dose Route Start Last Admin Trade Name Freq PRN Reason Stop Dose Admin Acetaminophen 650 mg 09/17/25 00:59 Acetaminophen 325 Mg Tablet PO Q4HR PRN Pain 1 to 4, or Fever Apixaban 10 mg 09/17/25 14:00 09/22/25 08:59 Apixaban 5 Mg Tablet PO 09/24/25 13:59 10 mg BID AUGUSTUS Administration Apixaban 5 mg 09/24/25 21:00 Apixaban 5 Mg Tablet PO BID AUGUSUTS Atorvastatin Calcium 80 mg 09/17/25 02:00 09/21/25 21:29 Atorvastatin 40 Mg Tablet PO 80 mg HS AUGUSTUS Administration Benzonatate 100 mg 09/17/25 13:17 09/21/25 20:04 Benzonatate 100 Mg Capsule PO 100 mg TID PRN Administration Cough Dicyclomine HCl 20 mg 09/17/25 09:00 09/22/25 08:58 Dicyclomine 10 Mg Capsule PO 20 mg BID AUGUSTUS Administration Fluoxetine HCl 30 mg 09/17/25 09:00 09/22/25 08:59 Fluoxetine 10 Mg Capsule PO 30 mg DAILY AUGUSTUS Administration Furosemide 40 mg 09/21/25 08:00 09/22/25 13:05 Furosemide 40 Mg Tablet PO 40 mg BIDDIURETIC AUGUSTUS Administration Guaifenesin/Codeine Phosphate 5 ml 09/17/25 16:57 09/21/25 00:12 Guaifenesin/Codeine 5 Ml Udc PO 5 ml Q6HR PRN Administration Cough Nystatin 1 applic 09/17/25 02:00 09/22/25 09:00 Nystatin Powder 15 Gm TOP 1 applic BID AUGUSTUS Administration Ondansetron HCl 4 mg 09/21/25 14:46 09/21/25 21:08 Ondansetron 4 Mg/2 Ml Vial IVP 4 mg Q4HR PRN Administration Nausea / Vomiting Oxycodone HCl 5 mg 09/17/25 16:23 09/22/25 11:10 Oxycodone 5 Mg Tablet PO 5 mg Q4HR PRN Administration Moderate Pain (Level 4-6) Sodium Chloride 10 ml 09/17/25 00:59 09/20/25 05:32 Sodium Chloride Flush 0.9% 10 Ml Syringe IVP 10 ml PRN PRN Administration NEEDED PER PROVIDER ORDERS Sodium Chloride 10 ml 09/17/25 01:00 09/22/25 08:59 Sodium Chloride Flush 0.9% 10 Ml Syringe IVP 10 ml 0100,0900,1700 AUGUSTUS Administration Throat Lozenges 1 lozenge 09/19/25 06:01 09/19/25 06:11 Benzocaine/Menthol Lozenge MM 1 lozenge Q2HR PRN Administration Throat pain Trazodone HCl 100 mg 09/17/25 02:00 09/21/25 21:29 Trazodone 50 Mg Tablet PO 100 mg HS AUGUSTUS Administration Objective Vital Signs/Intake & Output Reviewed Vital Signs: Yes Vital Signs: Vital Signs x48h Temp Pulse BP Pulse Ox O2 Flow Rate 09/22/25 13:27 36.6 C 09/22/25 08:00 36.5 C 93 136/66 H 95 1 Intake & Output: Intake & Output 09/19/25 09/20/25 09/21/25 09/22/25 23:59 23:59 23:59 23:59 Intake Total 3267 / 3267 2110 / 2110 640 / 640 360 / 360 Output Total 1600 / 1600 1750 / 1750 1300 / 1300 200 / 200 Balance 1667 / 1667 360 / 360 -660 / -660 160 / 160 Objective Comments/Other: GEN: No acute distress HEENT: NC/AT, normal appearance of external ears and nose. Hearing baseline. Cardiac: Regular rate and rhythm, no murmurs. No significant JVP elevation at 30 degrees. Pulm: Lungs CTA bilaterally. No adventitial lung sounds. No wheeze. Dry cough continues to improve. Abdomen: Soft, nontender. Distended. Tense ascites. Stitch in situ in prior paracentesis site in right medial abdomen Extremities: Moves all 4 extremities equally. Normal tone. Neuro: Face symmetric, CN II through XII intact grossly. Gait exam deferred Psych: Mood euthymic with congruent affect. Lab Results 09/20/25 05:40 09/22/25 05:25 Other Labs: Lab Results x24hrs 09/22/25 Range/Units 05:25 Sodium 136 (135-145) mmol/L Potassium 4.5 (3.5-4.5) mmol/L Chloride 101 (101-111) mmol/L Carbon Dioxide 29 (21-32) mmol/L Anion Gap 6.0 (6-13) BUN 34 H (6-20) mg/dL Creatinine 1.3 (0.6-1.3) mg/dL Estimated GFR (MDRD) 40 L (>89) Glucose 110 H (74-104) mg/dL Calcium 8.8 (8.5-10.3) mg/dL Assessment/Plan Problem List (1) Pulmonary emboli: Impression: Continues on DOAC. No obvious signs of bleeding. Hgb last checked 09/20 stable at 9.8. On admission she was found to have multiple acute PEs on her CTA. No right heart strain. Blood pressures remained stable. She was started on a heparin drip in the ED, Transition to DOAC on 09/17. Overall her PE was largely unprovoked, would treat with indefinite anticoagulation. - Repeat CBC in anticipation of paracentesis - Continue loading dose Eliquis 10 mg twice daily, through 09/24 - After loading dose Eliquis indefinite twice daily 5 mg Eliquis - Med ready Qualifiers: Pulmonary embolism type: multiple subsegmental (without acute cor pulmonale) Qualified Code(s): I26.94 - Multiple subsegmental thrombotic pulmonary emboli without acute cor pulmonale (2) WINSTON (acute kidney injury): Impression: Stable creatinine around 1.3. Did improve to 0.9. Continues on diuretics as below. Continuing to trend while on twice daily diuretics Recall that she presented with a creatinine of 1.3 that peaked at 2.1. Urine studies suggestive of prerenal etiology. Suspect she was intravascularly dry. Improved with fluids. Creatinine 1.3 > 2.1 > 1.9 > 1.4 > 0.9 > 1.3 - Encourage oral hydration - Trend BMP a.m. - Patient is medically ready for discharge. (3) History of ovarian cancer: (4) Peritoneal carcinomatosis: Impression: Would benefit from paracentesis. Unfortunately was unable to get this done today. Patient has a very recent diagnosis of ovarian cancer and peritoneal carcinomatosis. She was just informed of this possible diagnosis on . She was found to have moderately sized irregular adnexal mass measuring up to 5.[address] scan[address] was prompted by rapidly accumulating ascites and abdominal distention. Her liver is unremarkable. She had an ultrasound-guided paracentesis on 09/12. 5 L was removed. Had persistent peritoneal drainage until suture was placed 09/18. This stopped the drainage. Pathology from that paracentesis just returned as of 09/17, revealing adenocarcinoma favoring Mullerian primary. This to be consistent with her imaging. This is ER positive. Normal expression of mismatch repair genes. Given attendant peritoneal carcinomatosis, the patient has a relatively poor outlook. Without treatment she may have a 6-month survival. With treatment it may be as much is a year. I shared with her prognosis on 09/18. She was understandably saddened by this news. Unclear if her ER positivity may give her more targeted therapies. - Ultrasound-guided paracentesis mostly therapeutic, I have added diagnostics labs to rule out SBP - Continue twice daily oral Lasix, monitor BMP a.m. - Likely discharge on 40 mg oral Lasix once or twice Daily - Patient is wanting to follow-up with [facility] in [place], she has a home down there but has not yet moved in. - Patient is clear that she is DNR, she vacillates between comfort measures and selective treatment. Overall her desire to seek consult with oncology is more supportive of selective treatment. - Patient likely to discharge immediately from the hospital to home with her friend Jesus and his , then arrange her move to [place]. o He will be ready to take her on 09/23. - Suture removed from prior paracentesis site 09/22 - Monitor for signs of SBP, So far no abdominal tenderness. She has remained afebrile. (5) Cough: Impression: Cough again is intervally improved. She has not trialed anything prior to this hospitalization. She is reporting some pleuritic pain associated with her cough. Suspect the etiology of her cough is from her pulmonary emboli, possibly some fluid component with her ascites. Improving with diuresis and anticoagulation as above. - Antitussives, Tessalon as primary, Robitussin AC as secondary - Tylenol and oral narcotics both available for pain as needed - Consider lidocaine patch for pleuritic chest pain, ordered as needed (6) Hyperkalemia: Impression: Resolved with IV Lasix. Discontinue lisinopril indefinitely. Continues on diuretics. - Lasix as above - Monitor BMP AM I spent a total of 37 minutes in the care of this patient today. This time was spent reviewing labs, vital signs, imaging, interviewing and examining the patient, and discussing plan of care with them and their other care providers.
[2025-09-23 06:20] LABS: BUN - BLOOD UREA NITROGEN 37.0 mg/dL (6-20); CARBON DIOXIDE - CO2 31.0 mmol/L (21-32); CREATININE 1.5 mg/dL (0.6-1.3); GFR - MDRD 34.0 (>89)
--- NOTE | 2025-09-23 10:24 | Discharge Summary ---
"Discharge Summary Admit Date: 09/17/25 Discharge Date: 09/25/25 Discharging Provider: Dr. Burton Downs Primary Care Provider: Tricia Alva Discharge Facility Name: [facility] DIAGNOSES Discharge Diagnoses with Status of Each Condition: Acute hypoxic respiratory failure, pulmonary emboli Patient has been saturating between 92 to 93% on room air. Completed Eliquis 10 mg twice daily, loading dose for 7 days. Last day 09/24. After this, continue Eliquis 5 mg twice daily. Likely will need to be on this indefinitely as this was an unprovoked PE. WINSTON (acute kidney injury) Resolved. Patient's baseline creatinine appears to be around 0.9-1.2. Increased to 1.5 on 09/24; decreased overnight back to 1.2. Continue oral Lasix, decreased to once daily. Trend BMP weekly. Ovarian cancer, peritoneal carcinomatosis Patient with a very recent diagnosis of ovarian cancer and peritoneal carcinomatosis. She was relayed this information on 09/[address] scan revealed a adnexal mass, and she had rapidly accumulating ascites and abdominal distention. 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 With peritoneal carcinomatosis, patient likely has poor prognosis, but has not been able to see oncology yet. She would like to follow-up with [facility] in [place], where her brother is also receiving treatment for esophageal cancer. Unfortunately, transfer was not feasible after speaking with [facility] directly. If she isn't able to go to [place], she will need close follow-up with oncology in the outpatient setting. I spoke with her PCP, Tricia Alva, and she was able to place a urgent [place] Cough Suspect the etiology of her cough is from her pulmonary emboli, possibly some fluid component with her ascites. Improving with diuresis and anticoagulation as above. Antitussives, Tessalon as primary, Tylenol and oral narcotics both available for pain as needed. HPI History of Present Illness: Per Dr. Le: 75 yo F who presented with weakness. She states she developed extreme bloating and she was referred to hospital. CT 09/03 showed ovarian cancer and she was referred to hospital to get the fluid drained from her abdomen beginning of September. She had difficulty stopping the draining so she came in yesterday. Mostly drainage was clear with possible shadow of pink. She has some residual soreness head to belly and she is tired. Yesterday she developed weakness. She was sitting on the floor and when she tried to get up she could not, had weakness in all extremities so she called EMS. She denies history of blood clots but says her brother has had them. CONSULTS | PROCEDURES Consultations: Radiology (for possible paracentesis) Procedures: Abdomen [id number] amount of ascites noted in the abdomen, insufficient not for therapeutic paracentesis. Chest/thorax [id number] acute pulmonary emboli in the bilateral hemithoraces extending from level of proximal segmental pulmonary arteries distally. Trace right and small left pleural effusions with associated compressive atelectasis. Moderate ascites noted in upper abdomen. HOSPITAL COURSE Hospital Course: Patient is a 75-year-old female with recently diagnosed ovarian cancer and likely peritoneal carcinomatosis who presented with difficulty stopping fluid from draining from her recent paracentesis site. She also had associated weakness and chills. While here, she was noted to be hypoxic, and she had noticed that she had some shortness of breath. She was placed on oxygen, and this was weaned off. CT angiogram showed pulmonary emboli without any notable heart strain. She was started on loading dose Eliquis and completed her 7 days here. She was then continued on 5 mg Eliquis twice daily. Repeat abdominal ultrasound was completed, and there is no drainable fluid seen in the abdomen. Her discharge was complicated by her overall discharge goals. This is all very new to her, and she had not met with the oncologist yet. Initially, her good friend Jesus, as well as her brother Vikas had prefered that she be transferred to [facility]. Here is where she would have the most familial support. However, a direct transfer was not feasible after speaking with [facility] directly as there was no criteria met for direct inpatient to inpatient transfer. They explored trying to get a [employer] or private plane to help transport her, but ultimately she felt too weak for this. Finally, she was going to stay at her friend Jesus's place for a few days and then her brother was going to come down to help transport her to [place], but she ultimately felt too weak for this as well. They have opted to go to [facility] for rehab first to see if there will be improvement in her physical fitness, and then they will try to explore going to [place] for further oncological care. I did speak with her primary care provider, and [place] was able [place] so she has a backup. I spoke with the patient, patient's brother and patient's friend Jesus extensively about need for urgent follow-up with his very advanced cancer and likely limited prognosis. They demonstrated understanding. She was discharged to [facility] in stable condition. She will need close follow-up with oncology and her primary care provider. ALLERGIES Allergies Allergy/AdvReac Type Severity Reaction Status Date / Time metformin AdvReac Intermediate Diarrhea Verified 09/17/25 00:46 Tetracyclines AdvReac Intermediate upset Verified 09/17/25 00:46 stomach codeine AdvReac Mild jitters Verified 09/17/25 00:46 MEDICATIONS Ambulatory Orders Medication Instructions Recorded Confirmed albuterol sulfate 90 mcg/actuation 2 puff inhalation Q 4H PRN 09/25/25 aerosol inhaler shortness of breath or wheez ing #8.5 grams alprazolam 1 mg tablet 0.5 - 1 mg (0.5 - 1 x 1 mg) PO 09/25/25 DAILY PRN anxiety #7 tabs apixaban 5 mg tablet (Eliquis) 5 mg PO BID #60 tabs atorvastatin 80 mg tablet 80 mg PO HS #30 tabs 5 fluoxetine 20 mg capsule 20 mg PO DAILY #30 caps 09/07 08/01 furosemide 40 mg tablet (Lasix) 40 mg PO DAILY #30 tab s 09/25/25 lisinopril 40 mg tablet 40 mg PO DAILY #30 tabs 09/0709/17/25 oxycodone 5 mg tablet 5 mg PO Q8H PRN pain #12 tab s 09/25/25 trazodone 100 mg tablet 100 mg PO HS #30 tabs 09/17/25 PHYSICAL EXAM AT DISCHARGE Vital Signs: Vital Signs x48h Temp Pulse Resp BP Pulse Ox 09/25/25 08:03 97.3 F L 81 16 107/68 93 Physical Exam Other/Comments: General Appearance: positive No acute distress, Alert and Anxious Eyes Bilateral: positive Normal inspection, PERRL and EOMI ENT: positive ENT inspection nml, Pharynx nml and No signs of dehydration Neck: positive Nml inspection, Thyroid nml and No JVD Respiratory: positive Chest non-tender, No respiratory distress and Breath sounds nml; negative Wheezes, Rales or Rhonchi Cardiovascular: positive Regular rate & rhythm, No murmur and No gallop; negative Tachycardia or Systolic murmur Abdomen: positive No organomegaly, Tenderness and Other (Abdominal distention noted. No fluid wave. No rigidity, no guarding. Mild tenderness to diffuse palpation.); negative Guarding or Splenomegaly Back: positive Nml inspection; negative CVA tenderness (R) or CVA tenderness (L) Skin: positive Color nml, No rash, Warm and Dry Extremities: positive Non-tender, Full ROM, Nml appearance and No pedal edema Neurologic/Psychiatric: positive Oriented x3, Motor nml and Mood/affect nml LABS 09/25/25 05:21 09/25/25 05:21 FOLLOW UP Follow Up: Follow-up with PCP. Follow-up with oncology. TIME SPENT Time Spent in Discharge (Minutes): 35 Discharge Plan Discharge Patient Disposition: 03 [facility] DC/Xfer Condition: Fair Prescriptions: New Eliquis 5 mg tablet 5 mg PO BID Qty: 60 0RF furosemide [Lasix] 40 mg tablet 40 mg PO DAILY Qty: 30 0RF oxycodone 5 mg tablet 5 mg PO Q8H PRN (Reason: pain) Qty: 12 0RF Continued atorvastatin 80 mg tablet 80 mg PO HS Qty: 30 0RF alprazolam 1 mg tablet 0.5 - 1 mg PO DAILY PRN (Reason: anxiety) Qty: 7 0RF trazodone 100 mg tablet 100 mg PO HS Qty: 30 0RF Patient Comments: take 1 tablet by mouth at bedtime if needed for sleep albuterol sulfate 90 mcg/actuation HFA aerosol inhaler 2 puff INHALATION Q4H PRN (Reason: shortness of breath or wheezing) Qty: 8.5 0RF lisinopril 40 mg tablet 40 mg PO DAILY Qty: 30 0RF Patient Comments: TAKE 1 TABLET BY MOUTH ONCE DAILY fluoxetine 20 mg capsule 20 mg PO DAILY Qty: 30 0RF Patient Comments: take 1 capsule by mouth once daily WITH 10MG FOR TOTAL DOSE OF 30MG Discontinued verapamil 360 mg capsule,ext rel. pellets 24 hr 360 mg PO DAILY dicyclomine 20 mg tablet 20 mg PO BID PRN (Reason: abdominal pain) diclofenac potassium 50 mg tablet 50 mg PO DAILY triamcinolone acetonide 0.1 % cream 1 applic topical DAILY PRN (Reason: rash) Activity Restrictions: Activity as Tolerated Diet: Regular Health Concerns: You likely have advanced ovarian cancer with peritoneal carcinomatosis and ascites (fluid buildup in the abdomen). Your care plan includes ongoing cancer treatment and supportive management of symptoms, especially ascites. Ascites Management: - Symptom Monitoring: Watch for increased abdominal swelling, pain, shortness of breath, or difficulty eating. These may indicate worsening ascites or complications. - Paracentesis: If you experience significant discomfort, outpatient paracentesis (drainage of abdominal fluid) is safe and effective for symptom relief. Most patients tolerate free drainage well, and it can often be done as a day procedure. - Indwelling Catheter: For recurrent or persistent ascites, an indwelling peritoneal catheter may be considered for home-based drainage, improving comfort and reducing hospital visits. - Fluid Balance: Monitor for signs of dehydration (dry mouth, dizziness) after drainage. Maintain adequate oral intake unless otherwise instructed. General Supportive Care: - Nutrition: Eat small, frequent meals. A low-residue diet may help if you have bowel symptoms. - Pain and Symptom Control: Take prescribed medications for pain, nausea, or other symptoms as directed. Notify your team if symptoms worsen or new symptoms develop. - Activity: Gentle activity is encouraged as tolerated. Rest as needed. - Follow-Up: Attend all scheduled oncology and palliative care appointments. Routine monitoring may include physical exams, blood tests, and imaging as indicated. - When to Seek Help: Contact your care team or seek emergency care for severe abdominal pain, fever, confusion, rapid weight gain, difficulty breathing, or signs of infection. Palliative and Psychosocial Support: - Early involvement of palliative care specialists is recommended for symptom management and holistic support. - Discuss advance care planning and goals of care with your team as needed. You have also been diagnosed with a pulmonary embolism (PE), which is a blood clot in the lungs. - Take your blood thinner (anticoagulant) exactly as prescribed. Missing doses increases your risk of another clot; taking extra doses increases your risk of bleeding. - Do not stop your medication without talking to your doctor. Bleeding Precautions - Blood thinners increase your risk of bleeding. Watch for signs such as: - Unusual bruising or bleeding (gums, nose, urine, stool) - Severe headache, dizziness, or weakness - Coughing or vomiting blood - Black or tarry stools - If you have any of these, seek medical attention immediately. Activity and Lifestyle - Resume light activities as tolerated. Avoid strenuous exercise until cleared by your doctor. - Stay active to help prevent more clots, but avoid activities with a high risk of injury. - Maintain a healthy diet and avoid alcohol or [id number] medications (like NSAIDs) that can increase bleeding risk unless approved by your doctor. Follow-Up - Attend all follow-up appointments. You may need blood tests or imaging to monitor your condition and medication. - Your doctor will discuss how long you need to take blood thinners. This is usually at least 3-6 months, but may be longer depending on your risk factors. When to Seek Help - Call 911 or go to the emergency room if you have: - Sudden chest pain or shortness of breath - Fainting or severe weakness - Severe bleeding that wont stop - Contact your doctor if you have new swelling, pain in your legs, or any concerns about your medication. I understand this is all happening very fast. You just learned about your cancer diagnosis at the end of last month, and have not had the opportunity to even see an oncologist. I can tell, however, that you have a very great support system around you. I am glad you have Jesus, as well as your brother. I know you have plans to travel to [place], but if this is not feasible, you need to see an oncologist to soon as possible. I spoke with your primary care provider, and she is placing a urgent consult for oncology in case you do end up staying [place] the [place]. If your condition worsens at home prior to you being able to go back to [place], please return to the emergency room. We are glad you are feeling better. Thank you for allow us to take care of you. Print Language: Sami Patient Instructions: ED Ascites Stand Alone Forms: SNF Discharge, PCP List Follow-up Care: TRICIA ALVA ARNP [Primary Care Provider, Nurse Practitioner] Report called to and time (if no answer, doc. time of each call attempted): AT 1434 Vitals documented within 30 minutes of discharge?: Yes"
--- NOTE | 2025-09-23 11:18 | Ultrasound Report ---
PROCEDURE: US Abdomen Limited INDICATIONS: Therapeutic for ascites TECHNIQUE: Real-time focused scanning was performed of the abdomen, with image documentation. COMPARISONS: 09/12/2025 FINDINGS: Small amount of ascites noted in the abdomen. Insufficient amount for therapeutic paracentesis. IMPRESSION: Small amount of ascites noted in the abdomen. Insufficient amount for therapeutic paracentesis. Reviewed by: Avi Young MD on 09/23/2025 11:15 AM PST Approved by: Avi Young MD on 09/23/2025 11:15 AM PST Station ID: [id number]
--- NOTE | 2025-09-23 13:23 | PROVIDER PROGRESS NOTE ---
Subjective Subjective Subjective: Patient continues to have some abdominal pain related to her distention. She had thought that she was going to get a paracentesis today. We discussed how there was no drainable fluid on the abdominal ultrasound today. Her distention may be related to her peritoneal carcinomatosis. She had initially hoped for a direct transfer to the [facility] in [place], [place]. Her brother is currently receiving oncological treatment there. She thought that his oncologist had agreed to take her on as a patient as well, and was in agreement for this direct transfer. First, I spoke with her brother. He currently sees Dr. Fuentes. He explained that although Dr. Fuentes will not be the physician that sees her, but he states that he told him that he can make appropriate referrals for his sister once in [place]. I spoke with [facility] in [facility], transfer center. As patient does not have an acute inpatient need (she is medically cleared for discharge), they do not think a medical transfer is necessary at this time. This was relayed to the patient and her friend, Jesus at bedside. They have opted to have her be discharged to SNF instead, and then gain the strength to transfer herself via airplane to [place] for further oncological care and treatment. Current Medications Current Medications Current Medications: Current Medications Generic Name Dose Route Start Last Admin Trade Name Freq PRN Reason Stop Dose Admin Acetaminophen 650 mg 09/17/25 00:59 Acetaminophen 325 Mg Tablet PO Q4HR PRN Pain 1 to 4, or Fever Apixaban 10 mg 09/17/25 14:00 09/23/25 08:44 Apixaban 5 Mg Tablet PO 09/24/25 13:59 10 mg BID AUGUSTUS Administration Apixaban 5 mg 09/24/25 21:00 Apixaban 5 Mg Tablet PO BID AUGUSTUS Atorvastatin Calcium 80 mg 09/17/25 02:00 09/22/25 19:32 Atorvastatin 40 Mg Tablet PO 80 mg HS AUGUSTUS Administration Benzonatate 100 mg 09/17/25 13:17 09/21/25 20:04 Benzonatate 100 Mg Capsule PO 100 mg TID PRN Administration Cough Dicyclomine HCl 20 mg 09/17/25 09:00 09/23/25 08:43 Dicyclomine 10 Mg Capsule PO 20 mg BID AUGUSTUS Administration Fluoxetine HCl 30 mg 09/17/25 09:00 09/23/25 08:43 Fluoxetine 10 Mg Capsule PO 30 mg DAILY AUGUSTUS Administration Furosemide 40 mg 09/24/25 09:00 Furosemide 40 Mg Tablet PO DAILY AUGUSTUS Guaifenesin/Codeine Phosphate 5 ml 09/17/25 16:57 09/23/25 00:50 Guaifenesin/Codeine 5 Ml Udc PO 5 ml Q6HR PRN Administration Cough Nystatin 1 applic 09/17/25 02:00 09/23/25 08:44 Nystatin Powder 15 Gm TOP 1 applic BID AUGUSTUS Administration Ondansetron HCl 4 mg 09/21/25 14:46 09/21/25 21:08 Ondansetron 4 Mg/2 Ml Vial IVP 4 mg Q4HR PRN Administration Nausea / Vomiting Oxycodone HCl 5 mg 09/17/25 16:23 09/22/25 16:03 Oxycodone 5 Mg Tablet PO 5 mg Q4HR PRN Administration Moderate Pain (Level 4-6) Sodium Chloride 10 ml 09/17/25 00:59 09/20/25 05:32 Sodium Chloride Flush 0.9% 10 Ml Syringe IVP 10 ml PRN PRN Administration NEEDED PER PROVIDER ORDERS Sodium Chloride 10 ml 09/17/25 01:00 09/23/25 08:45 Sodium Chloride Flush 0.9% 10 Ml Syringe IVP 10 ml 0100,0900,1700 AUGUSTUS Administration Throat Lozenges 1 lozenge 09/19/25 06:01 09/19/25 06:11 Benzocaine/Menthol Lozenge MM 1 lozenge Q2HR PRN Administration Throat pain Trazodone HCl 100 mg 09/17/25 02:00 09/22/25 19:33 Trazodone 50 Mg Tablet PO 100 mg HS AUGUSTUS Administration Objective Vital Signs/Intake & Output Reviewed Vital Signs: Yes Vital Signs: Vital Signs x48h Temp Pulse Resp BP Pulse Ox O2 Flow Rate 09/23/25 07:55 98.2 F 93 20 122/58 L 90 L 09/23/25 06:30 2 Intake & Output: Intake & Output 09/20/25 09/21/25 09/22/25 09/23/25 23:59 23:59 23:59 23:59 Intake Total 2110 / 2110 640 / 640 480 / 480 1120 / 1120 Output Total 1750 / 1750 1300 / 1300 400 / 400 1000 / 1000 Balance 360 / 360 -660 / -660 80 / 80 120 / 120 Objective General Appearance: positive No acute distress, Alert and Anxious Eyes Bilateral: positive Normal inspection, PERRL and EOMI ENT: positive ENT inspection nml, Pharynx nml and No signs of dehydration Neck: positive Nml inspection, Thyroid nml and No JVD Respiratory: positive Chest non-tender, No respiratory distress and Breath sounds nml; negative Wheezes, Rales or Rhonchi Cardiovascular: positive Regular rate & rhythm, No murmur and No gallop; negative Tachycardia or Systolic murmur Abdomen: positive No organomegaly, Tenderness and Other (Abdominal distention noted. No fluid wave. No rigidity, no guarding. Mild tenderness to diffuse palpation.); negative Guarding or Splenomegaly Back: positive Nml inspection; negative CVA tenderness (R) or CVA tenderness (L) Skin: positive Color nml, No rash, Warm and Dry Extremities: positive Non-tender, Full ROM, Nml appearance and No pedal edema Neurologic/Psychiatric: positive Oriented x3, Motor nml and Mood/affect nml Lab Results 09/20/25 05:40 09/23/25 05:40 Other Labs: Lab Results x24hrs 09/23/25 Range/Units 05:40 Sodium 135 (135-145) mmol/L Potassium 4.5 (3.5-4.5) mmol/L Chloride 99 L (101-111) mmol/L Carbon Dioxide 31 (21-32) mmol/L Anion Gap 5.0 L (6-13) BUN 37 H (6-20) mg/dL Creatinine 1.5 H (0.6-1.3) mg/dL Estimated GFR (MDRD) 34 L (>89) Glucose 103 (74-104) mg/dL Calcium 8.7 (8.5-10.3) mg/dL Assessment/Plan Problem List (1) Acute hypoxic respiratory failure: (2) Pulmonary emboli: Impression: The following plan is for the above two assessments: Patient has been saturating between 90% to 92% on room air. Overnight, she does desaturate. Will likely need to be discharged on oxygen. Goal saturation greater than 92%. Continue Eliquis 10 mg twice daily, loading dose for 7 days. Last day 09/24. After this, continue Eliquis 5 mg twice daily. Likely will need to be on this indefinitely as this was an unprovoked PE. Qualifiers: Pulmonary embolism type: multiple subsegmental (without acute cor pulmonale) Qualified Code(s): I26.94 - Multiple subsegmental thrombotic pulmonary emboli without acute cor pulmonale (3) WINSTON (acute kidney injury): Impression: Patient's baseline creatinine appears to be around 0.9-1.2. Increased to 1.5 this morning. Continue oral Lasix, decreased to once daily. Trend BMP daily. (4) History of ovarian cancer: (5) Peritoneal carcinomatosis: Impression: Patient with a very recent diagnosis of ovarian cancer and peritoneal carcinomatosis. She was relayed this information on 09/06 after a CAT scan revealed a adnexal mass, and she had rapidly accumulating ascites and abdominal distention. 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 With peritoneal carcinomatosis, patient likely has poor prognosis, but has not been able to see oncology yet. She would like to follow-up with [facility] in [place], where her brother is also receiving treatment for esophageal cancer. Unfortunately, transfer was not feasible as documented above, after speaking with [facility] directly. As she is medically cleared for discharge, she will likely go to SNF, and then will need close follow-up with oncology in the outpatient setting. (6) Cough: Impression: Suspect the etiology of her cough is from her pulmonary emboli, possibly some fluid component with her ascites. Improving with diuresis and anticoagulation as above. Antitussives, Tessalon as primary, Robitussin AC as secondary, Tylenol and oral narcotics both available for pain as needed. (7) Hyperkalemia: Impression: Resolved with IV Lasix. Discontinue lisinopril indefinitely. Monitor BMP AM.
[2025-09-23] MEDS: MELATONIN 3 MG TABLET PO SCH (21:28)
[2025-09-24 05:53] LABS: HCT - HEMATOCRIT 30.2 % (37.0-47.0); HGB - HEMOGLOBIN 9.4 g/dL (12.0-16.0); MEAN PLATELET VOLUME 10.4 fL (7.9-10.8); PLT - PLATELET COUNT 522.0 10^3/uL (130-450); RED CELL DISTRIBUTION WIDTH 14.4 % (12.0-15.0)
[2025-09-24 06:11] LABS: BUN - BLOOD UREA NITROGEN 34.0 mg/dL (6-20); CARBON DIOXIDE - CO2 30.0 mmol/L (21-32); CREATININE 1.2 mg/dL (0.6-1.3); GFR - MDRD 44.0 (>89)
[2025-09-24] MEDS: FUROSEMIDE 40 MG TABLET PO SCH (08:27)
--- NOTE | 2025-09-24 12:16 | PROVIDER PROGRESS NOTE ---
Subjective Subjective Subjective: Patient continues to have some abdominal pain related to her distention. She is nervous about going home. She is worried about her generalized weakness and fatigue. This was relayed to the patient and her friend, Jesus at bedside. They have opted to have her be discharged to SNF instead, and then gain the strength to transfer herself via airplane to [place] for further oncological care and treatment. Current Medications Current Medications Current Medications: Current Medications Generic Name Dose Route Start Last Admin Trade Name Freq PRN Reason Stop Dose Admin Acetaminophen 650 mg 09/17/25 00:59 Acetaminophen 325 Mg Tablet PO Q4HR PRN Pain 1 to 4, or Fever Apixaban 10 mg 09/17/25 14:00 09/24/25 08:27 Apixaban 5 Mg Tablet PO 09/24/25 13:59 10 mg BID AUGUSTUS Administration Apixaban 5 mg 09/24/25 21:00 Apixaban 5 Mg Tablet PO BID AUGUSTUS Atorvastatin Calcium 80 mg 09/17/25 02:00 09/23/25 21:27 Atorvastatin 40 Mg Tablet PO 80 mg HS AUGUSTUS Administration Benzonatate 100 mg 09/17/25 13:17 09/21/25 20:04 Benzonatate 100 Mg Capsule PO 100 mg TID PRN Administration Cough Dicyclomine HCl 20 mg 09/17/25 09:00 09/24/25 08:27 Dicyclomine 10 Mg Capsule PO 20 mg BID AUGUSTUS Administration Fluoxetine HCl 30 mg 09/17/25 09:00 09/24/25 08:28 Fluoxetine 10 Mg Capsule PO 30 mg DAILY AUGUSTUS Administration Furosemide 40 mg 09/24/25 09:00 09/24/25 08:27 Furosemide 40 Mg Tablet PO 40 mg DAILY AUGUSTUS Administration Guaifenesin/Codeine Phosphate 5 ml 09/17/25 16:57 09/23/25 00:50 Guaifenesin/Codeine 5 Ml Udc PO 5 ml Q6HR PRN Administration Cough Melatonin 3 mg 09/23/25 21:00 09/23/25 21:28 Melatonin 3 Mg Tablet PO 3 mg QPM AUGUSTUS Administration Nystatin 1 applic 09/17/25 02:00 09/24/25 08:28 Nystatin Powder 15 Gm TOP 1 applic BID AUGUSTUS Administration Ondansetron HCl 4 mg 09/21/25 14:46 09/21/25 21:08 Ondansetron 4 Mg/2 Ml Vial IVP 4 mg Q4HR PRN Administration Nausea / Vomiting Oxycodone HCl 5 mg 09/17/25 16:23 09/24/25 04:02 Oxycodone 5 Mg Tablet PO 5 mg Q4HR PRN Administration Moderate Pain (Level 4-6) Sodium Chloride 10 ml 09/17/25 00:59 09/20/25 05:32 Sodium Chloride Flush 0.9% 10 Ml Syringe IVP 10 ml PRN PRN Administration NEEDED PER PROVIDER ORDERS Sodium Chloride 10 ml 09/17/25 01:00 09/24/25 08:32 Sodium Chloride Flush 0.9% 10 Ml Syringe IVP 10 ml 0100,0900,1700 AUGUSTUS Administration Throat Lozenges 1 lozenge 09/19/25 06:01 09/19/25 06:11 Benzocaine/Menthol Lozenge MM 1 lozenge Q2HR PRN Administration Throat pain Trazodone HCl 100 mg 09/17/25 02:00 09/23/25 21:28 Trazodone 50 Mg Tablet PO 100 mg HS AUGUSTUS Administration Objective Vital Signs/Intake & Output Reviewed Vital Signs: Yes Vital Signs: Vital Signs x48h Temp Pulse Resp BP Pulse Ox 09/24/25 08:05 98.1 F 86 18 145/74 H 93 Intake & Output: Intake & Output 09/21/25 09/22/25 09/23/25 09/24/25 23:59 23:59 23:59 23:59 Intake Total 640 / 640 480 / 480 1360 / 1360 270 / 270 Output Total 1300 / 1300 400 / 400 1050 / 1050 500 / 500 Balance -660 / -660 80 / 80 310 / 310 -230 / -230 Objective General Appearance: positive No acute distress, Alert and Anxious Eyes Bilateral: positive Normal inspection, PERRL and EOMI ENT: positive ENT inspection nml, Pharynx nml and No signs of dehydration Neck: positive Nml inspection, Thyroid nml and No JVD Respiratory: positive Chest non-tender, No respiratory distress and Breath sounds nml; negative Wheezes, Rales or Rhonchi Cardiovascular: positive Regular rate & rhythm, No murmur and No gallop; negative Tachycardia or Systolic murmur Abdomen: positive No organomegaly, Tenderness and Other (Abdominal distention noted. No fluid wave. No rigidity, no guarding. Mild tenderness to diffuse palpation.); negative Guarding or Splenomegaly Back: positive Nml inspection; negative CVA tenderness (R) or CVA tenderness (L) Skin: positive Color nml, No rash, Warm and Dry Extremities: positive Non-tender, Full ROM, Nml appearance and No pedal edema Neurologic/Psychiatric: positive Oriented x3, Motor nml and Mood/affect nml Lab Results 09/24/25 05:16 09/24/25 05:16 Other Labs: Lab Results x24hrs 09/24/25 Range/Units 05:16 WBC 11.6 H (4.8-10.8) x10^3/uL RBC 3.45 L (4.20-5.40) 10^6/uL Hgb 9.4 L (12.0-16.0) g/dL Hct 30.2 L (37.0-47.0) % MCV 87.5 (81.0-99.0) fL MCH 27.2 (27.0-31.0) pg MCHC 31.1 L (32.0-36.0) g/dL RDW 14.4 (12.0-15.0) % Plt Count 522 H (130-450) 10^3/uL MPV 10.4 (7.9-10.8) fL Sodium 136 (135-145) mmol/L Potassium 5.2 H (3.5-4.5) mmol/L Chloride 100 L (101-111) mmol/L Carbon Dioxide 30 (21-32) mmol/L Anion Gap 6.0 (6-13) BUN 34 H (6-20) mg/dL Creatinine 1.2 (0.6-1.3) mg/dL Estimated GFR (MDRD) 44 L (>89) Glucose 103 (74-104) mg/dL Calcium 8.8 (8.5-10.3) mg/dL Magnesium 1.7 (1.7-2.3) mg/dL Assessment/Plan Problem List (1) Acute hypoxic respiratory failure: (2) Pulmonary emboli: Impression: The following plan is for the above two assessments: Resolving. Patient has been saturating between 92 to 93% on room air. Continue Eliquis 10 mg twice daily, loading dose for 7 days. Last day 09/24. After this, continue Eliquis 5 mg twice daily. Likely will need to be on this indefinitely as this was an unprovoked PE. Qualifiers: Pulmonary embolism type: multiple subsegmental (without acute cor pulmonale) Qualified Code(s): I26.94 - Multiple subsegmental thrombotic pulmonary emboli without acute cor pulmonale (3) WINSTON (acute kidney injury): Impression: Patient's baseline creatinine appears to be around 0.9-1.2. Increased to 1.5 on 09/24; decreased overnight back to 1.2. Continue oral Lasix, decreased to once daily. Trend BMP daily. (4) History of ovarian cancer: (5) Peritoneal carcinomatosis: Impression: The following is the plan for the above two diagnoses: Patient with a very recent diagnosis of ovarian cancer and peritoneal carcinomatosis. She was relayed this information on 09/[address] scan revealed a adnexal mass, and she had rapidly accumulating ascites and abdominal distention. 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 With peritoneal carcinomatosis, patient likely has poor prognosis, but has not been able to see oncology yet. She would like to follow-up with [facility] in [place], where her brother is also receiving treatment for esophageal cancer. Unfortunately, transfer was not feasible as documented above, after speaking with [facility] directly. As she is medically cleared for discharge, she will likely go to SNF, and then will need close follow-up with oncology in the outpatient setting. (6) Cough: Impression: Suspect the etiology of her cough is from her pulmonary emboli, possibly some fluid component with her ascites. Improving with diuresis and anticoagulation as above. Antitussives, Tessalon as primary, Robitussin AC as secondary, Tylenol and oral narcotics both available for pain as needed. (7) Hyperkalemia: Impression: Resolved with Lasix. Discontinue lisinopril indefinitely. Monitor BMP AM.
[2025-09-24] MEDS: APIXABAN 5 MG TABLET PO SCH (20:52)
[2025-09-25 06:14] LABS: HCT - HEMATOCRIT 31.2 % (37.0-47.0); HGB - HEMOGLOBIN 9.7 g/dL (12.0-16.0); MEAN PLATELET VOLUME 10.0 fL (7.9-10.8); PLT - PLATELET COUNT 549.0 10^3/uL (130-450); RED CELL DISTRIBUTION WIDTH 14.4 % (12.0-15.0)
[2025-09-25 06:34] LABS: BUN - BLOOD UREA NITROGEN 28.0 mg/dL (6-20); CARBON DIOXIDE - CO2 30.0 mmol/L (21-32); CREATININE 0.9 mg/dL (0.6-1.3); GFR - MDRD 61.0 (>89)
[2025-09-25 14:31] VITALS: BP 156/77; TEMP 97.9; O2SAT 92
== END 2025-09-25 14:34 | DRG 175 ==
LOC: ED 17:26 → MS2 17:26 → SUATTDRO 22:26 → MS2 22:59
PROVIDERS: ADMIT Internal Medicine; ATTEND Student in an Organized Health Care Education/Training Program
DX: I26.94 Multiple subsegmental thrombotic pulmonary emboli without acute cor pulmonale; I26.99 Other pulmonary embolism without acute cor pulmonale; F41.9 Anxiety disorder, unspecified; F32.A Depression, unspecified; N17.9 Acute kidney failure, unspecified; E78.5 Hyperlipidemia, unspecified; D64.9 Anemia, unspecified; C56.9 Malignant neoplasm of unspecified ovary; C78.6 Secondary malignant neoplasm of retroperitoneum and peritoneum; E66.9 Obesity, unspecified; J96.01 Acute respiratory failure with hypoxia; R18.8 Other ascites; Z66 Do not resuscitate; I10 Essential (primary) hypertension; Z68.30 Body mass index [BMI] 30.0-30.9, adult; E87.5 Hyperkalemia; R53.1 Weakness; E04.1 Nontoxic single thyroid nodule; J90 Pleural effusion, not elsewhere classified